=== PATIENT | male | born 1960 | race Caucasian/White ===

== ENCOUNTER → 2022-04-27 06:53 | Outpatient (CLI) | payer OTHER, SELFPAY ==
--- NOTE | 2022-04-27 | CA_ITS ---
APPROVED REPORT Exam: Exercise Treadmill Technologist: Kanwal Urbina Ht: 6 ft 0 in Wt: 193 lbs BSA: 2.10 m2 HR: 80 bpm BP: 149/89 mmHg Indications: Dyspnea Medical History Medications: BisOPROLOL,,,,, Stress Test Details Test: Nabeel HR Resting HR: 77 bpm Max Heart Rate (APMHR): 159 bpm Max HR Achieved: 136 bpm Target HR (85% APMHR): 135 bpm % of APMHR: 86 Recovery HR: 93 bpm BP Resting BP: 149.0/89.0 mmHg Max BP: 156.0/86.0 mmHg Recovery BP: 170.0/96.0 mmHg ECG Resting ECG: Normal sinus rhythm Clinical Reason for Termination: Dyspnea Exercise duration: 06:00 min Highest Stage Achieved: Exercise capacity: 7.0 METs Stress ECG Conclusion Abnormal stress test due to complaint of left shoulder pain. Patient exercised on a nabeel protocol for 6 minutes to peak heart rate of 136 bpm (target heart rate 135 bpm) without any arrhythmias. Less than 1.[address] segment depression noted infero-laterally that resolved quickly in recovery. He complained of left shoulder pain with radiation into chest that resolved in recovery. Total METS acheived 7.0 with peak blood pressure 159/102 mmHg. See the nuclear report for further information. Test Summary REST . . . . . . . Sitting REST . . . . . . . Standing REST 08:46 0.0 0.0 77 . 149/ 89 . . Stage 1 01:00 10.0 1.7 106 . . . . Stage 1 02:00 10.0 1.7 126 . . . . Stage 1 03:00 10.0 1.7 126 . 150/ 82 . . Stage 2 01:00 12.0 2.5 133 . . . . Stage 2 . . . . . . . Myoview Injected Stage 2 02:00 12.0 2.5 136 . . . . Stage 2 03:00 12.0 2.5 135 . . . Stop exercise at 06:00 RECOVERY 01:00 0.0 0.0 118 . . . . RECOVERY 02:00 0.0 0.0 98 . . . . RECOVERY 03:00 0.0 0.0 93 . . . . RECOVERY 04:00 0.0 0.0 85 . . . . RECOVERY 05:00 0.0 0.0 83 . 156/ 86 . . RECOVERY 05:30 0.0 0.0 82 . 156/ 86 . . Electronically signed by : Lauro Long MD 04/28/2022 06:31:35
--- NOTE | 2022-04-27 06:59 | NM_ITS ---
APPROVED REPORT Exam: Nuclear Stress Test Indication: Chest pain, SOB, Fatigue, HTN, Tobacco use Patient Location: Outpatient Stress Tech: Kanwal Urbina NE Tech:Shireen Oro, ARRT, RT (R)(N) Ht: 6 ft 0 in Wt: 193 lbs HR: 77 bpm BP: 149/89 mmHg BSA: 2.10 m2 TID: 1.21 History: Chest pain, SOB, Fatigue, HTN, Tobacco use Procedure: Patient exercised on Sumeet protocol 6:00 minutes and sec, resting heart rate 77 bpm, resting blood pressure 149/89 mmHg, with exercise maximum heart rate achived was 136 bpm which is 86 % of the maximum predicted heart rate and blood pressure was 156/86 mmHg. Test was stopped due to SOB and Lt shoulder pain. Patient denied any complaint of chest pain. Patient has Adequate exercise capacity, achieved 7.0 METs of workload on treadmill, the blood pressure response to exercise was Adequate. Electrocardiogram Resting electrocardiogram shows sinus rhythm, with exercise there is less than 1.[address] segment depression noted from the baseline EKG. The EKG portion of the exercise Myoview is negative for ischemia. Cardiac Stress and Resting SPECT Images: Cardiac Stress and Resting SPECT images were obtained using technetium 99m Myoview 27.9 mCi stress and 10.51 mCi at rest. Gated SPECT for analysis of segmental wall motion and calculation of the ejection fraction also done. Cardiac stress and rest SPECT may show a low-grade reversible ischemia involving the anterior r, anterior apical, apex and anteroseptal wall, there is transient ischemic dilatation of the left ventricle seen. Computer derived ejection fraction is 44% with mild anterior and anterior apical wall hypokinesis. Right ventricle is normal size and contractility. Conclusion: 1. The EKG portion of the exercise Myoview negative for ischemia, patient has adequate exercise capacity achieved 7 METS of workload on treadmill, the blood pressure response to exercise was adequate, patient developed exercise-induced symptoms compatible with angina. 2. Scintigraphic evidence of large reversible ischemia involving the anterior, anterior apical, apex and anteroseptal wall with transient ischemic dilatation of the left ventricle. Computer derived ejection fraction is 44% with segmental wall motion abnormality described above, right ventricle is normal size and contractility. 3. Abnormal exercise myocardial perfusion imaging. Electronically signed by : Lauro Long MD 04/28/2022 06:35:22
--- NOTE | 2022-04-27 09:24 | HMH.ITSHM ---
Current Home Medications as stated by this patient Heron Aly or medical representative. []BISOPROLOL
== END ==
PROVIDERS: PCP Internal Medicine Adolescent Medicine; Visit Provider Internal Medicine Adolescent Medicine
DX: R06.09 Other forms of dyspnea (principal)
CPT/HCPCS: 78452; 93017; A9502

== ENCOUNTER 2022-04-28 15:25 | Inpatient (IN) | payer OTHER, SELFPAY ==
[2022-04-28] VITALS (26 sets, daily range): BP systolic 117–151; BP diastolic 75–99; PULSE 69–100; RESP 12–23; TEMP -17.7–37.1; O2SAT 95–100; BMI 24.5; BMI 25.7; BMI 25.2
--- NOTE | 2022-04-28 15:31 | PC.NURSE ---
JASON ELY at
--- NOTE | 2022-04-28 15:31 | ECG_ITS ---
APPROVED REPORT Exam: Resting ECG HR:70 bpm ECG Measurements Heart Rate 70 AXES AL 150 P 70 QRSd 107 QRS -25 QT 400 T 37 QTc 421 Conclusion SINUS RHYTHM INCOMPLETE RIGHT BUNDLE BRANCH BLOCK [90+ ms QRS DURATION, TERMINAL R IN V1/V2, 40+ ms S IN I/aVL/V4/V5/V6] POSSIBLE INFERIOR MYOCARDIAL INFARCTION , PROBABLY OLD [30 ms Q WAVE IN II/aVF] MARKED ST ELEVATION, CONSIDER ANTEROSEPTAL INJURY [MARKED ST ELEVATION W/O NORMALLY INFLECTED T-WAVE IN V1-V4] ACUTE OR UNCONFIRMED REPORT Electronically signed by : Den Caceres MD 04/29/2022 21:35:00
--- NOTE | 2022-04-28 15:31 | PC.NURSE ---
STEMI alert announced overhead
--- NOTE | 2022-04-28 15:36 | HMH.PHAINT1 ---
Pharmacy Intervention Comments: MEDICATION RECONCILIATION COMPLETED ON PATIENT USING EXTERNAL FILL HISTORY FROM PHARMACY. -[facility] CHU, DIONYD
--- NOTE | 2022-04-28 15:39 | XR_ITS ---
FINAL REPORT CLINICAL HISTORY: stemi alert, patient going to heart electronic lab technician. FINDINGS: SINGLE-VIEW CHEST The heart size is normal. The mediastinum is normal. The lungs are clear. There is no pneumothorax. IMPRESSION: No acute cardiopulmonary process. Reviewed, Interpreted and Dictated by Gonzalo Sanchez III, MD Transcribed by Ana Pedroza Authenticated and [facility]
--- NOTE | 2022-04-28 15:46 | HMH.EDGENADL ---
Discharge Plan Disposition Patient Disposition: Admitted As Inpatient Condition: Serious Clinical Impressions Clinical Impression: ST elevation (STEMI) myocardial infarction Discharge ED Provider: Quinn Bobo General Adult HPI General Chief complaint: Chest Pain Stated complaint: LT shoulder pain Time Seen by Provider: 04/28/22 15:32 History of Present Illness HPI narrative: Patient planes of upper abdominal and left shoulder pain with diaphoresis. Onset 1 PM. He has been having episodes like this off and on for 2 to 3 weeks. He just had a stress test yesterday, patient is unaware of results. This is the longest and worst episode he has had. Current pain 6/10. No shortness of breath or nausea. He has no previous known heart problems. He does have hypertension and is a smoker. He does not have diabetes or hyperlipidemia. He does not have a family history of heart disease. Related Data Home Medications Medication Instructions Recorded Confirmed bisoprolol 5 1 tab PO DAILY Hypertension 04/28/22 04/28/22 mg-hydrochlorothiazide 6.25 mg tablet escitalopram oxalate 10 mg tablet 10 mg PO DAILY MOOD 04/28/22 04/28/22 Allergies Allergy/AdvReac Type Severity Reaction Status Date / Time No Known Allergies Allergy Verified 04/28/22 15:42 [facility] Disclaimer: The information contained in this section may have been updated after the patient was seen, as this information can be updated by other users. Medical History (Updated 04/28/22 @ 19:46 by Den Caceres MD) Hypertension Family History (Updated 04/28/22 @ 17:31 by Patricia Marie RN) Other Family history of cancer Family history of hypertension Social History (Updated 04/28/22 @ 17:32 by Patricia Marie RN) Smoking Status: Unknown if ever smoked alcohol intake: never current occupational status: employed Travel in the last 8 weeks: None ROS Obtained: Yes Systems reviewed as appropriate & no additional complaints except as documented Constitutional Constitutional: Denies fever(s), Denies headache(s) and Denies weakness ENT Ears, Nose, Mouth, and Throat: Denies headache(s), Denies nasal discharge and Denies sore throat Cardiovascular Cardiovascular: Denies chest pain, Reports diaphoresis and Reports radiating jaw, neck or arm pain Respiratory Respiratory: Denies shortness of breath and Denies cough Gastrointestinal Gastrointestingal: Denies abdominal pain, constipation, diarrhea, nausea or vomiting Genitourinary Male Genitourinary: Denies difficulty urinating and Denies flank pain Musculoskeletal Musculoskeletal: Denies numbness Neurologic Neurologic: Denies headache(s), Denies numbness and Denies weakness Physical Exam General General appearance: alert and in no apparent distress Head Head exam: atraumatic and normocephalic Eye Eye exam: Present normal appearance and EOMI ENT ENT exam: Present mucous membranes moist Neck Neck exam: Present normal inspection and trachea midline Chest Chest inspection: Present normal inspection and symmetric chest wall rise Respiratory Respiratory exam: Present normal lung sounds bilaterally; Absent respiratory distress Cardiovascular Cardiovascular exam: Present regular rate, normal rhythm, normal heart sounds and other (Normal peripheral pulses) Abdominal Exam Abdominal exam: Present soft and normal bowel sounds; Absent distention, tenderness, guarding, rebound or rigidity Extremities Exam Extremities exam: Present normal inspection Neurological Exam Neurological exam: Present alert and oriented X3 Psychiatric Psychiatric exam: Present normal affect and normal mood Skin Skin exam: Present warm and dry Medical Decision Making Medical Records Medical records reviewed: Yes I reviewed the patient's medical records. MR Comment: Reviewed stress test and myoview results from yesterday Justin Inquiry Pt receiving controlled substance: Yes Justin was queried for this patient: No
--- NOTE | 2022-04-28 15:57 | PC.NURSE ---
pt transported to chemical laboratory assistant via stretcher by Darren RN
[2022-04-28 15:58] LABS: Basophils # 0.3 K/mm3 (0-0.2); Basophils % 2.5 % (0.1-2.0); Chloride 102 mmol/L (98-107); Eosinophils # 0.1 K/mm3 (0.0-0.4); Hematocrit 48.3 % (42.0-52.0); Hemoglobin 16.1 g/dL (14.1-18.0); Lymphocytes # 2.9 K/mm3 (0.7-4.5); Lymphocytes % 25.4 % (10-50); Mean Corpuscular HGB Conc 33.3 g/dL (31.8-35.4); Mean Corpuscular Hemoglobin 32.9 pg (27.0-31.2); Mean Corpuscular Volume 98.9 fl (80-94); Mean Platelet Volume 8.2 fl (7.4-10.4); Monocytes # 0.7 K/mm3 (0.1-1.0); Neutrophils # 7.5 K/mm3 (1.8-7.8); Neutrophils % 65.1 % (37.0-80.0); Platelet Count 328 K/mm3 (142-424); Potassium 3.9 mmoL/L (3.5-5.1); Red Blood Count 4.89 M/mm3 (4.60-6.20); Red Cell Distribution Width 12.9 % (11.5-17.5); Sodium 140 mmol/L (136-145); White Blood Count 11.5 K/mm3 (4.8-10.8)
--- NOTE | 2022-04-28 15:58 | IR_ITS ---
APPROVED REPORT Patient Location: Emergent Shoe Cutter: GABO Moses RT (R) PROCEDURES Left heart catheterization Left ventriculogram Selective coronary angiogram Mechanical thrombectomy to the proximal LAD Drug-eluting stent deployment to the proximal LAD Informed consent was obtained prior to the procedure. COMPLICATIONS None Estimated Blood Loss: Less than 10 ML TECHNIQUE One percent lidocaine used to anesthetize the right anterior aspect of the wrist. The right radial artery was accessed via the Seldinger technique. A 6 Micronesian sheath was placed in the right radial artery. 2.5 mg of verapamil, 800 mcg of nitroglycerin, 1mg Lidocaine and 5000 U Heparin were given through the arterial sheath. The papa catheter was also used to perform selective coronary angiography. Guide catheter was placed in the left main artery followed by a Choice PT extra-support wire being placed on the LAD. A JobzippersumbOzVision mechanical aspiration catheter removed large thrombus which restored TIERENY-3 flow. A 4 mm x 15 mm resolute R[place]bury stent was deployed at 18 demetrio reducing the critical stenosis to 0%. A 5 mm x 8 mm balloon was deployed at 20 demetrio in the proximal portion of the stent to post dilate and better provide stent apposition. At the end of the procedure there was excellent proximal distal transitioning with TIERNEY 0 flow at the beginning of the procedure and TIERNEY-3 flow at the end of the procedure. The guide catheter was then used to perform right coronary artery angiography as well as left heart catheterization and left ventriculogram. At the end of the procedure the apparatus was removed the sheath was removed good hemostasis was achieved using TR banding patient was transferred to the postop putting in stable condition ANGIOGRAPHIC RESULTS The left main artery Normal The left anterior descending artery Initially proximally occluded. Following stenting the proximal LAD was widely patent with TIERNEY-3 flow throughout the entire LAD which wraps the apex and supplies the inferior wall The circumflex artery Large dominant normal The right coronary artery Nondominant normal The PAL ventriculogram reveals Anteroapical hypokinesis estimated ejection fraction 35 to 40% The left ventricular end-diastolic pressure 20 mmHg [address] Acute anterior ST elevation myocardial infarction involving a proximal wraparound apex LAD with successful mechanical aspiration followed by drug-eluting stenting reducing the 100% occlusion to 0% with 1 drug-eluting stent Large regional wall motion abnormality Elevated LVEDP PLAN 1. Brilinta 90 twice daily plus aspirin 81 mg daily 2. Avoidance of tobacco products 3. LDL less than 55 to be achieved with high intensity statin 4. Echocardiogram to better evaluate ejection fraction. If ejection fraction is 35% or less patient should be prescribed a LifeVest prior to discharge home 5. Advance Entresto first and once hemodynamically tolerated then beta-blockers can be advanced 6. Cardiac rehabilitation 7. Continuous telemetry monitoring for at least 48 hours Electronically signed by : Shawn Childs MD 04/28/2022 17:01:41
--- NOTE | 2022-04-28 15:58 | PC.NURSE ---
prashant from animal laboratory technician called and said they was ready for pt to come up
--- NOTE | 2022-04-28 15:59 | PC.NURSE ---
pt transported to slabbing machine operator per myself and tereso ritter on zoll monitor
[2022-04-28 16:01] LABS: Anion Gap 12.9 mEq/L (5-15); Blood Urea Nitrogen 22 mg/dl (9-20); Calcium 8.9 mg/dl (8.4-10.2); Carbon Dioxide 29 mmol/L (22.0-30.0); Creatinine Clearance Estimated 95 mL/min (50-200); Estimated Glomerular Filt Rate 76 ml/min (>60); GFR (African American) 92 ML/MIN (>60); Glucose 151 mg/dl (74-100)
--- NOTE | 2022-04-28 16:07 | PC.NURSE ---
JASON ELY speaking with Dr. Caceres at this time
[2022-04-28 16:11] LABS: NT Pro Brain Natriuretic Pep. 57.6 pg/mL (0-125)
[2022-04-28 16:15] LABS: Troponin I 0.01 ng/ml (0.00-0.034)
[2022-04-28 17:27] LABS: CATHL Activated Clotting Time 278 SEC (74-125)
[2022-04-28 19:43] LABS: Coronavirus 19, PCR Not Detected (NotDetected); Influenza A, PCR Not Detected (NotDetected); Influenza B, PCR Not Detected (NotDetected)
--- NOTE | 2022-04-28 19:43 | EXP.HP ---
History of Present Illness *Admission Date: 04/28/22 *Reason for visit:: Chest and abd pain *History of present illness: 62-year-old male with multiple cardiac risk factors who has seen me a couple of times in the past week with some exertional anginal symptoms. Stress test was done yesterday which was markedly abnormal, results had returned early this morning but patient began to develop pain throughout the morning and we advised him to come to the emergency department early this afternoon. He presented to the ER with chest pain, evidence of STEMI on EKG he was taken to the Public Health Program Manager. Please see cardiology notes. Clot removed from LAD/stent placed. Patient stabilized. Transferred to floor in good condition. [facility] Disclaimer: The information contained in this section may have been updated after the patient was seen, as this information can be updated by other users. Medical History (Updated 04/28/22 @ 19:46 by Den Caceres MD) Hypertension Family History (Updated 04/28/22 @ 17:31 by Patricia aMrie RN) Family history of cancer Family history of hypertension Social History (Updated 04/28/22 @ 17:32 by Patricia Marie RN) Smoking Status: Unknown if ever smoked alcohol intake: never current occupational status: employed Travel in the last 8 weeks: None Review of Systems Constitutional Constitutional: Denies headache(s) and Denies weakness ENT Ears, Nose, Mouth, and Throat: Denies headache(s) *Musculoskeletal Musculoskeletal: Denies numbness *Neurologic Neurologic: Denies headache(s), Denies numbness and Denies weakness Meds Home Medications and Allergies Home Medications Medication Instructions Recorded Confirmed Type bisoprolol 5 1 tab PO DAILY Hypertension 04/28/22 04/28/22 History mg-hydrochlorothiazide 6.25 mg tablet escitalopram oxalate 10 mg tablet 10 mg PO DAILY MOOD 04/28/22 04/28/22 History New Prescriptions to Start Prescriptions: Allergies Allergy/AdvReac Type Severity Reaction Status Date / Time No Known Allergies Allergy Verified 04/28/22 15:42 Exam Data for Last 24 hours Vital signs and Labs for Last 24 Hours: Temp Pulse Resp BP Pulse Ox 98 F 84 18 126/83 98 04/28/22 17:56 04/28/22 18:40 04/28/22 18:40 04/28/22 18:40 04/28/22 18:40 Laboratory Results - last 24 hr 04/28/22 15:37: WBC 11.5 H, RBC 4.89, Hgb 16.1, Hct 48.3, MCV 98.9 H, MCH 32.9 H, MCHC 33.3, RDW 12.9, Plt Count 328, MPV 8.2, Neut % (Auto) 65.1, Lymph % (Auto) 25.4, [place] % (Auto) 6.0, Eos % (Auto) 1.0, Baso % (Auto) 2.5 H, Neut # (Auto) 7.5, Lymph # (Auto) 2.9, [place] # (Auto) 0.7, Eos # (Auto) 0.1, Baso # (Auto) 0.3 H 04/28/22 15:37: Sodium 140, Potassium 3.9, Chloride 102, Carbon Dioxide 29, Anion Gap 12.9, BUN 22 H, Creatinine 1.00, Estimated Creat Clear 95, Estimated GFR 76, Est GFR ( Amer) 92, Glucose 151 H, Calcium 8.9, Troponin I 0.01 04/28/22 15:37: NT-Pro-B Natriuret Pep 57.6 04/28/22 17:33: Activated Clotting Time 278 H* I & O for Last 24 hours: Intake & Output 04/26/22 04/27/22 04/28/22 04/29/22 11:59 11:59 11:59 11:59 Weight 186 lb 6 oz Constitutional Constitutional: no acute distress *Routine HEENT Exam Head: Present normocephalic Eye: Present EOMI and PERRL ENT: Present mucous membranes moist *Routine Neck Exam Neck: Present supple; Absent lymphadenopathy *Routine Respiratory Exam Respiratory: Present CTA bilaterally *Routine Cardiovascular Exam Cardiovascular: Present RRR *Routine Abdominal Exam Abdominal: Present soft and normoactive bowel sounds; Absent tenderness *Routine Rectal Exam Rectal:: deferred *Routine Genitalia Exam Genitalia:: deferred *Routine Extremities Exam Extremities: Absent cyanosis, clubbing or edema *Routine Skin Exam Skin: Present warm; Absent rash *Routine Neurological Exam Neurological: Present alert and oriented X3 Assessment and Plan *Assessment and plan (1) ST elevation (STEMI) myocardial infarctio
[2022-04-29] VITALS (12 sets, daily range): BP systolic 113–139; BP diastolic 63–91; PULSE 69–92; RESP 16–20; TEMP 36.7–37.1; O2SAT 96–99; BMI 24.9
--- NOTE | 2022-04-29 03:33 | PC.NURSE ---
Pt has c/o CP tonight with a rating between 2-5. Has also had some indigestion. Medicated per may. VS have remained stable. Pt is NSR on telemetry. (R) radial cath site is C/D/I. No drainage noted. Has ambulated to with stand by assist. Call light within reach.
[2022-04-29 06:26] LABS: Basophils # 0.1 K/mm3 (0-0.2); Basophils % 0.4 % (0.1-2.0); Eosinophils % 0.2 % (0.1-12.0); Hematocrit 44.3 % (42.0-52.0); Hemoglobin 15.6 g/dL (14.1-18.0); Lymphocytes # 2.4 K/mm3 (0.7-4.5); Lymphocytes % 12.6 % (10-50); Mean Corpuscular HGB Conc 35.2 g/dL (31.8-35.4); Mean Corpuscular Hemoglobin 34.9 pg (27.0-31.2); Mean Corpuscular Volume 99.3 fl (80-94); Monocytes # 1.2 K/mm3 (0.1-1.0); Monocytes % 6.5 % (1.7-9.3); Neutrophils # 15.5 K/mm3 (1.8-7.8); Neutrophils % 80.4 % (37.0-80.0); Platelet Count 276 K/mm3 (142-424); Red Blood Count 4.46 M/mm3 (4.60-6.20); Red Cell Distribution Width 13.2 % (11.5-17.5); White Blood Count 19.2 K/mm3 (4.8-10.8)
[2022-04-29 06:38] LABS: MANUAL DIFFERENTIAL MANUAL DIFFERENTIAL (MANUAL DIFF)
[2022-04-29 06:43] LABS: Chloride 104 mmol/L (98-107); Potassium 4.1 mmoL/L (3.5-5.1); Sodium 137 mmol/L (136-145)
[2022-04-29 06:46] LABS: Anion Gap 10.1 mEq/L (5-15); Blood Urea Nitrogen 20 mg/dl (9-20); Calcium 8.8 mg/dl (8.4-10.2); Carbon Dioxide 27 mmol/L (22.0-30.0); Creatinine Clearance Estimated 92 mL/min (50-200); Estimated Glomerular Filt Rate 98 ml/min (>60); GFR (African American) 119 ML/MIN (>60); Glucose 117 mg/dl (74-100)
[2022-04-29 07:46] LABS: Lymphocytes % 20 % (10-50); Monocytes % 6 % (2-9); Neutrophils % 74 % (42-76); Platelet Estimate Normal; RBC Morphology Normal; Total Cells Counted 100
--- NOTE | 2022-04-29 07:50 | CA_ITS ---
APPROVED REPORT EXAM: Comprehensive 2D, Doppler, and color-flow Echocardiogram Media Traffic Manager: Valerie Durant RT(R) Ht: 5 ft 8 in Wt: 183lbs BSA: 1.97 BP: 126/83 mmHg Indications: HTN, CM on cath 35-40% EF, STEMI 2D Dimensions LVOT 1.87 cm (M/F) 1.5-2.5 LVEF (Altamirano's) 31.20 % M: 52 - 72 LV Volume 98.10 mL M: 62 - 150 LV Volume Index 49.80 mL/m2 M: 34 - 74 LA Volume 39.30 mL LA Volume Index 19.95 mL/m2 (M/F) 16-34 M-Mode Dimensions RVDd 2.33 cm (0.9-2.6) LA Diam 2.51 cm (1.9-4.0) LVDd 5.44 cm (3.5-5.7) Ao Diam 2.58 cm (2.0-3.7) LVDs 4.08 cm (3.5-5.7) IVSd 0.79 cm (0.6-1.1) PWd 0.89 cm (0.6-1.1) EF (Teich) 48.90% FS 25.00% EDV (Teich) 143.70 mL ESV (Teich) 73.40 mL LV Diastology E Decel Time 220.00 (160-240 msec) E/A Ratio 0.6 MED E' 5.90 (< 7 cm/sec) E'/MED E' Ratio 10.68 (>14) LAT E' 6.80 (<10 cm/sec) E/LAT E' Ratio 9.26 (>14) Mitral Valve MV E Max Parvez. 63.00 (40-130 cm/s) MV A Velocity 98.00 (40-130 cm/s) E/A Ratio 0.64 MV Decel. Time 220.00 (160-240 ms) MV PHT 64.00 ms Left Ventricle Left atrium is mildly enlarged, left ventricle is normal size, mild concentric left ventricular hypertrophy estimated ejection fraction approximately 45%, there is moderate hypokinesis involving the left distal septum and apical wall. Grade 1 diastolic dysfunction seen without evidence of intraventricular pressure. Right Ventricle Right atrium and right ventricular normal size and contractility. Aortic Valve Aortic valve is thickened and calcified without aortic stenosis or aortic insufficiency. Mitral Valve Mitral valve is grossly normal, there is trace mitral regurgitation. Tricuspid Valve Tricuspid grossly normal, there is trace tricuspid regurgitation, tricuspid regurgitation jet velocity is inadequate for calculation of right ventricular systolic pressure. Pulmonic Valve Pulmonic valve is poorly visualized. Great Vessels Aortic root is normal size. Inferior vena cava is poorly visualized. Pericardium No significant pericardial effusion noted. Conclusion 1. Mildly enlarged left atrium, normal left ventricular size, mild concentric left ventricular hypertrophy estimated ejection fraction 45% with segmental wall motion abnormality described above, grade 1 diastolic dysfunction seen without tissue Doppler evidence of raised left atrial pressure 2. Trace mitral and tricuspid regurgitation. 3. No significant pericardial effusion noted. 4. Inferior vena cava is poorly visualized. Electronically signed by : Lauro Long MD 04/29/2022 21:14:23
--- NOTE | 2022-04-29 07:50 | ECG_ITS ---
APPROVED REPORT Exam: Resting ECG HR:89 bpm ECG Measurements Heart Rate 89 AXES FL 146 P 54 QRSd 109 QRS 17 QT 359 T 89 QTc 406 Conclusion SINUS RHYTHM INDETERMINATE AXIS LOW QRS VOLTAGE IN PRECORDIAL LEADS [QRS DEFLECTION < 1.0 mV IN CHEST LEADS] INCOMPLETE RIGHT BUNDLE BRANCH BLOCK [90+ ms QRS DURATION, TERMINAL R IN V1/V2, 40+ ms S IN I/aVL/V4/V5/V6] POSSIBLE INFERIOR MYOCARDIAL INFARCTION , PROBABLY OLD [30 ms Q WAVE IN II/aVF] ANTEROSEPTAL MYOCARDIAL INFARCTION , PROBABLY RECENT [40+ ms Q WAVE IN V1-V4] ACUTE HI UNCONFIRMED REPORT Electronically signed by : Den Caceres MD 04/29/2022 21:33:59
--- NOTE | 2022-04-29 08:00 | EXP.CARD.CON ---
History of Present Illness History of Present Illness Consult date: 04/29/22 Requesting physician: Den Caceres Consult reason: chest pain Chief complaint: STEMI Additional Medical History:: 1. Hypertension 2. History of tobacco use 3. Anterior STEMI, 04/28/2022 A. LHC, 04/28/2022 with IVAN to LAD 4. Ischemic cardiomyopathy, 04/27/2022, GXT myoview (exercised for 6 min to 7 METS) A. EF 44% and anterior, anterior apical, apex and anteroseptal ischemia. TID of 1.21 noted. B. Echo, 04/29/2022, pending 5. Hyperlipidemia History of present illness: 62-year-old white male presented to the emergency department for anterior chest discomfort with associated indigestion type symptoms that were persistent. Patient relates 2-week history of intermittent symptoms only with exertion. He did undergo a stress test on 04/27/2022 with results coming back on 04/28/2022 showing anterior ischemia. Patient presented to the emergency department prior to getting those results due to prolonged chest pain. He was noted to have a anterior STEMI on EKG and he was sent urgently to the [facility] where he did receive thrombectomy and stent placement to his LAD. This a.m. the patient is comfortable and in no acute distress. Telemetry shows NSR without arrhythmias. EKG this AM is sinus with incomplete RBBB and evolutionary changes of anterior [place]. [facility] Disclaimer: The information contained in this section may have been updated after the patient was seen, as this information can be updated by other users. Medical History (Updated 04/29/22 @ 08:24 by SUE Monson) Hypertension Family History (Updated 04/28/22 @ 17:31 by Patricia Marie RN) Family history of cancer Family history of hypertension Social History (Updated 04/28/22 @ 17:32 by Patricia Marie RN) Smoking Status: Unknown if ever smoked alcohol intake: never current occupational status: employed Travel in the last 8 weeks: None Review of Systems Review of Systems Review of systems:: pertinent systems reviewed and negative unless documented below Constitutional Constitutional: Denies headache(s) and Denies weakness ENT Ears, Nose, Mouth, and Throat: Denies headache(s) *Cardiovascular Cardiovascular: Reports as per HPI, Reports chest pain and Reports dyspnea on exertion *Respiratory Respiratory: Reports dyspnea on exertion *Gastrointestinal Gastrointestinal: Reports heartburn and Denies loose stools *Musculoskeletal Musculoskeletal: Denies numbness *Neurologic Neurologic: Denies headache(s), Denies numbness and Denies weakness Exam Data for Last 24 hours Vital signs and Labs for Last 24 Hours: Temp Pulse Resp BP Pulse Ox 98.6 F 71 18 118/74 98 04/29/22 04:00 04/29/22 06:00 04/29/22 06:00 04/29/22 06:00 04/29/22 06:00 Laboratory Results - last 24 hr 04/28/22 15:37: WBC 11.5 H, RBC 4.89, Hgb 16.1, Hct 48.3, MCV 98.9 H, MCH 32.9 H, MCHC 33.3, RDW 12.9, Plt Count 328, MPV 8.2, Neut % (Auto) 65.1, Lymph % (Auto) 25.4, [place] % (Auto) 6.0, Eos % (Auto) 1.0, Baso % (Auto) 2.5 H, Neut # (Auto) 7.5, Lymph # (Auto) 2.9, [place] # (Auto) 0.7, Eos # (Auto) 0.1, Baso # (Auto) 0.3 H 04/28/22 15:37: Sodium 140, Potassium 3.9, Chloride 102, Carbon Dioxide 29, Anion Gap 12.9, BUN 22 H, Creatinine 1.00, Estimated Creat Clear 95, Estimated GFR 76, Est GFR ( Amer) 92, Glucose 151 H, Calcium 8.9, Troponin I 0.01 04/28/22 15:37: NT-Pro-B Natriuret Pep 57.6 04/28/22 17:33: Activated Clotting Time 278 H* 04/28/22 19:40: SARS-CoV-2 (PCR) Not detected, Influenza A Untype (PCR) Not detected, Influenza Type B (PCR) Not detected 04/29/22 05:38: WBC 19.2 H D, RBC 4.46 L, Hgb 15.6, Hct 44.3, MCV 99.3 H, MCH 34.9 H, MCHC 35.2, RDW 13.2, Plt Count 276, MPV 8.0, Neut % (Auto) 80.4 H, Lymph % (Auto) 12.6, [place] % (Auto) 6.5, Eos % (Auto) 0.2, Baso % (Auto) 0.4, Neut # (Auto) 15.5 H, Lymph # (Auto) 2.4, [place] # (Auto) 1.2 H, Eos # (Auto) 0.0, Baso # (Auto) 0.1, Total Counted 100, Neutrophils %
--- NOTE | 2022-04-29 08:13 | EXP.ACUTE.PN ---
Subjective *Date: 04/29/22 *Time: 08:13 Interval history: Patient did well overnight. Some anterior chest pain but improved through the night with Tylenol and 1 morphine injection. No dyspnea. No abdominal pain. Ate well. No vomiting Medical Exam Vital signs and Labs for Last 24 Hours: Vital Signs Temp Pulse Pulse Resp BP BP Pulse Ox 04/29/22 06:00 71 18 118/74 98 04/29/22 04:00 69 16 113/74 98 04/29/22 04:00 98.6 F 04/29/22 02:00 71 18 123/91 H 96 04/29/22 04:00 70 04/29/22 00:00 70 04/28/22 20:00 100 H 04/29/22 00:10 73 18 124/80 97 04/29/22 00:00 98.3 F 04/28/22 23:10 98.7 F 69 15 124/75 98 04/28/22 21:10 70 17 118/75 95 04/28/22 20:10 77 15 143/86 H 96 04/28/22 19:40 78 16 117/75 96 04/28/22 19:10 70 16 123/76 95 04/28/22 19:46 98.7 F 04/28/22 18:40 84 18 126/83 98 04/28/22 18:10 75 16 132/78 98 04/28/22 17:55 79 18 128/85 99 04/28/22 17:40 70 20 128/83 100 04/28/22 17:25 80 18 148/92 H 100 04/28/22 17:56 98 F 04/28/22 15:59 0 F L 72 16 125/80 04/28/22 17:24 73 04/28/22 17:20 74 04/28/22 15:30 80 18 151/99 H 96 04/28/22 17:05 74 13 136/86 98 04/28/22 17:00 74 12 140/83 98 04/28/22 16:55 72 18 137/97 H 99 04/28/22 16:50 72 18 141/91 H 100 04/28/22 15:57 73 19 125/80 98 04/28/22 15:55 70 15 130/83 98 04/28/22 15:52 17 134/93 H 99 04/28/22 15:50 77 18 137/84 99 04/28/22 15:47 76 23 137/84 99 Intake and Output 04/28/22 04/29/22 04/29/22 19:59 03:59 11:59 Output Total 0 / 0 Balance 0 / 0 Output: Output, Urine Amount 0 / 0 Other: Number of Unmeasured Voids 1 1 Weight 186 lb 6 oz 184 lb Patient Weight 04/29/22 11:59 Weight 184 lb Laboratory Results - last 24 hr 04/28/22 15:37: WBC 11.5 H, RBC 4.89, Hgb 16.1, Hct 48.3, MCV 98.9 H, MCH 32.9 H, MCHC 33.3, RDW 12.9, Plt Count 328, MPV 8.2, Neut % (Auto) 65.1, Lymph % (Auto) 25.4, [place] % (Auto) 6.0, Eos % (Auto) 1.0, Baso % (Auto) 2.5 H, Neut # (Auto) 7.5, Lymph # (Auto) 2.9, [place] # (Auto) 0.7, Eos # (Auto) 0.1, Baso # (Auto) 0.3 H 04/28/22 15:37: Sodium 140, Potassium 3.9, Chloride 102, Carbon Dioxide 29, Anion Gap 12.9, BUN 22 H, Creatinine 1.00, Estimated Creat Clear 95, Estimated GFR 76, Est GFR ( Amer) 92, Glucose 151 H, Calcium 8.9, Troponin I 0.01 04/28/22 15:37: NT-Pro-B Natriuret Pep 57.6 04/28/22 17:33: Activated Clotting Time 278 H* 04/28/22 19:40: SARS-CoV-2 (PCR) Not detected, Influenza A Untype (PCR) Not detected, Influenza Type B (PCR) Not detected 04/29/22 05:38: WBC 19.2 H D, RBC 4.46 L, Hgb 15.6, Hct 44.3, MCV 99.3 H, MCH 34.9 H, MCHC 35.2, RDW 13.2, Plt Count 276, MPV 8.0, Neut % (Auto) 80.4 H, Lymph % (Auto) 12.6, [place] % (Auto) 6.5, Eos % (Auto) 0.2, Baso % (Auto) 0.4, Neut # (Auto) 15.5 H, Lymph # (Auto) 2.4, [place] # (Auto) 1.2 H, Eos # (Auto) 0.0, Baso # (Auto) 0.1, Total Counted 100, Neutrophils % (Manual) 74, Lymphocytes % (Manual) 20, Monocytes % (Manual) 6, Platelet Estimate Normal, RBC Morphology Normal 04/29/22 05:38: Sodium 137, Potassium 4.1, Chloride 104, Carbon Dioxide 27, Anion Gap 10.1, BUN 20, Creatinine 0.80, Estimated Creat Clear 92, Estimated GFR 98, Est GFR ( Amer) 119 D, Glucose 117 H D, Calcium 8.8 I & O for Labs for Last 24 Hours: Intake & Output 04/26/22 04/27/22 04/28/22 04/29/22 11:59 11:59 11:59 11:59 Output Total 0 / 0 Balance 0 / 0 Weight 184 lb Constitutional: Present no acute distress Respiratory: Present normal respiratory effort Cardiac: Present Reg Rate and Rhythm GI: Present normal bowel sounds; Absent tenderness Extremities: Present normal inspection and full ROM Skin: Present intact; Absent erythema Neuro: Present Grossly Intact and moves all extremities Assessment and Plan *Assessment and pl
[2022-04-29 08:40] LABS: Chol/HDL Ratio 5.2 (1-3.5); Cholesterol 186 mg/dl (140-200); HDL Cholesterol 36 mg/dl (40-60); Triglycerides 93 mg/dl (30-150); VLDL Cholesterol 19 mg/dL (0-40)
[2022-04-29 08:51] LABS: Direct LDL Cholesterol 133.86 mg/dL (100-129)
--- NOTE | 2022-04-29 09:18 | PC.NURSE ---
notified Dr Caceres at this time about pt needing order for VTE.
[2022-04-30] VITALS: PULSE 76
--- NOTE | 2022-04-30 02:49 | PC.NURSE ---
NO C/O PAIN/SOA/DISCOMFORT. A/O X 4. CARDIAC CATH/ANGIOPLASTY 04/28/22. SR ON TELE. VSS/AFEBRILE.
[2022-04-30 04:00] VITALS: BP 116/75; PULSE 72; PULSE 81; RESP 18; TEMP 36.7; O2SAT 96; BMI 24.6
[2022-04-30 06:39] LABS: Basophils # 0.1 K/mm3 (0-0.2); Basophils % 0.6 % (0.1-2.0); Eosinophils # 0.1 K/mm3 (0.0-0.4); Eosinophils % 0.4 % (0.1-12.0); Hematocrit 48.3 % (42.0-52.0); Hemoglobin 15.7 g/dL (14.1-18.0); Lymphocytes # 2.2 K/mm3 (0.7-4.5); Lymphocytes % 18.5 % (10-50); Mean Corpuscular HGB Conc 32.5 g/dL (31.8-35.4); Mean Corpuscular Hemoglobin 33.2 pg (27.0-31.2); Mean Corpuscular Volume 102.3 fl (80-94); Monocytes # 1.1 K/mm3 (0.1-1.0); Monocytes % 9.1 % (1.7-9.3); Neutrophils # 8.6 K/mm3 (1.8-7.8); Neutrophils % 71.4 % (37.0-80.0); Platelet Count 287 K/mm3 (142-424); Red Blood Count 4.72 M/mm3 (4.60-6.20); White Blood Count 12.1 K/mm3 (4.8-10.8)
[2022-04-30 06:46] LABS: Chloride 107 mmol/L (98-107); Sodium 138 mmol/L (136-145)
[2022-04-30 06:49] LABS: Blood Urea Nitrogen 21 mg/dl (9-20); Creatinine Clearance Estimated 91 mL/min (50-200); Estimated Glomerular Filt Rate 86 ml/min (>60); GFR (African American) 104 ML/MIN (>60)
[2022-04-30 06:50] LABS: Calcium 8.5 mg/dl (8.4-10.2); Carbon Dioxide 30 mmol/L (22.0-30.0); Glucose 100 mg/dl (74-100)
[2022-04-30 07:34] VITALS: BP 108/65; PULSE 82; RESP 22; TEMP 36.7; O2SAT 99
[2022-04-30 08:00] VITALS: PULSE 82; O2SAT 99
--- NOTE | 2022-04-30 08:09 | EXP.DC.SUM ---
General Admission date:: 04/28/22 Discharge date: 04/30/22 HPI HPI HPI: 62-year-old male with multiple cardiac risk factors who has seen me a couple of times in the past week with some exertional anginal symptoms. Stress test was done yesterday which was markedly abnormal, results had returned early this morning but patient began to develop pain throughout the morning and we advised him to come to the emergency department early this afternoon. He presented to the ER with chest pain, evidence of STEMI on EKG he was taken to the [facility]. Please see cardiology notes. Clot removed from LAD/stent placed. Patient stabilized. Transferred to floor in good condition. Hospital Course Hospital Course Hospital Course: Patient was taken to the ER as a STEMI alert. Cardiac procedure done with clot removal, stent placement. Initial EF in the procedure was low, patient was observed carefully for the next 48 hours and did well with no further chest pain after 8 or so hours of some reperfusion pain. Vital signs remained normal and stable. Echocardiogram following day was noted with EF improving at 45%. Patient exhibited no signs of heart failure. This morning he feels well. Plan to be to discharge home on goal-directed therapy with DAPT, statin, Entresto, and low-dose beta-lester as well as Jardiance 10 mg given high risk of recurrence. He is done well with nicotine patch and we will continue this. Follow-up with cardiology in 6 days. I will see him in 1 week. Exam Data for Last 24 hours Vital signs and Labs for Last 24 Hours: Temp Pulse Resp BP Pulse Ox 98.1 F 82 22 108/65 L 99 04/30/22 07:34 04/30/22 07:34 04/30/22 07:34 04/30/22 07:34 04/30/22 07:34 Laboratory Results - last 24 hr 04/29/22 05:38: Triglycerides 93, Cholesterol 186, LDL Cholesterol Direct 133.86 H, VLDL Cholesterol 19, HDL Cholesterol 36 L, Cholesterol/HDL Ratio 5.2 H 04/30/22 05:52: WBC 12.1 H D, RBC 4.72, Hgb 15.7, Hct 48.3, MCV 102.3 H, MCH 33.2 H, MCHC 32.5, RDW 13.0, Plt Count 287, MPV 8.0, Neut % (Auto) 71.4, Lymph % (Auto) 18.5, [place] % (Auto) 9.1, Eos % (Auto) 0.4, Baso % (Auto) 0.6, Neut # (Auto) 8.6 H, Lymph # (Auto) 2.2, [place] # (Auto) 1.1 H, Eos # (Auto) 0.1, Baso # (Auto) 0.1 04/30/22 05:52: Sodium 138, Potassium 4.0, Chloride 107, Carbon Dioxide 30, Anion Gap 5.0, BUN 21 H, Creatinine 0.90, Estimated Creat Clear 91, Estimated GFR 86, Est GFR ( Amer) 104, Glucose 100, Calcium 8.5 I & O for Last 24 hours: Intake & Output 04/27/22 04/28/22 04/29/22 04/30/22 11:59 11:59 11:59 11:59 Intake Total 240 / 240 1440 / 1440 Output Total 350 / 350 Balance -110 / -110 1440 / 1440 Weight 183 lb 15.965 oz 182 lb 1 oz Constitutional Constitutional: no acute distress *Routine HEENT Exam Head: Present normocephalic Eye: Present EOMI and PERRL ENT: Present mucous membranes moist *Routine Neck Exam Neck: Present supple; Absent lymphadenopathy *Routine Respiratory Exam Respiratory: Present CTA bilaterally *Routine Cardiovascular Exam Cardiovascular: Present RRR *Routine Abdominal Exam Abdominal: Present soft and normoactive bowel sounds; Absent tenderness *Routine Extremities Exam Extremities: Absent cyanosis, clubbing or edema *Routine Skin Exam Skin: Present warm; Absent rash *Routine Neurological Exam Neurological: Present alert and oriented X3 Results Data Completed and Pending Labs on day of discharge: Labs from last 24 hours 04/30/22 04/30/22 04/29/22 05:52 05:52 05:38 WBC 12.1 H D RBC 4.72 Hgb 15.7 Hct 48.3 MCV 102.3 H MCH 33.2 H MCHC 32.5 RDW 13.0 Plt Count 287 MPV 8.0 Neut % (Auto) 71.4 Lymph % (Auto) 18.5 [place] % (Auto) 9.1 Eos % (Auto) 0.4 Baso % (Auto) 0.6 Neut # (Auto) 8.6 H Lymph # (Auto) 2.2 [place] # (Auto) 1.1 H Eos # (Auto) 0.1 Baso # (Auto) 0.1 Sodium 138 Potassium 4.0 Chloride 107 Carbon Dioxide 30 Anion Gap 5
--- NOTE | 2022-04-30 08:30 | EXP.CARD.PN ---
Subjective Subjective Date: 04/30/22 Time: 08:30 Principal diagnosis: STEMI Interval history: 62-year-old white male sitting in bedside chair no acute distress. No complaints. No arrhythmias noted on telemetry. Patient is anxious to go home. Echocardiogram showed EF at 45% with moderate hypokinesia involving the left distal septum and apical bryant. Grade 1 diastolic dysfunction noted. No significant valve disease.. Exam Data for Last 24 hours Vital signs and Labs for Last 24 Hours: Temp Pulse Resp BP Pulse Ox 98.1 F 82 22 108/65 L 99 04/30/22 07:34 04/30/22 07:34 04/30/22 07:34 04/30/22 07:34 04/30/22 07:34 Laboratory Results - last 24 hr 04/29/22 05:38: Triglycerides 93, Cholesterol 186, LDL Cholesterol Direct 133.86 H, VLDL Cholesterol 19, HDL Cholesterol 36 L, Cholesterol/HDL Ratio 5.2 H 04/30/22 05:52: WBC 12.1 H D, RBC 4.72, Hgb 15.7, Hct 48.3, MCV 102.3 H, MCH 33.2 H, MCHC 32.5, RDW 13.0, Plt Count 287, MPV 8.0, Neut % (Auto) 71.4, Lymph % (Auto) 18.5, [place] % (Auto) 9.1, Eos % (Auto) 0.4, Baso % (Auto) 0.6, Neut # (Auto) 8.6 H, Lymph # (Auto) 2.2, [place] # (Auto) 1.1 H, Eos # (Auto) 0.1, Baso # (Auto) 0.1 04/30/22 05:52: Sodium 138, Potassium 4.0, Chloride 107, Carbon Dioxide 30, Anion Gap 5.0, BUN 21 H, Creatinine 0.90, Estimated Creat Clear 91, Estimated GFR 86, Est GFR ( Amer) 104, Glucose 100, Calcium 8.5 I & O for Last 24 hours: Intake & Output 04/27/22 04/28/22 04/29/22 04/30/22 11:59 11:59 11:59 11:59 Intake Total 240 / 240 1440 / 1440 Output Total 350 / 350 Balance -110 / -110 1440 / 1440 Weight 183 lb 15.965 oz 182 lb 1 oz Constitutional Constitutional: no acute distress *Routine Respiratory Exam Respiratory: Present CTA bilaterally *Routine Cardiovascular Exam Cardiovascular: Present RRR *Routine Extremities Exam Extremities: Absent edema Progress Note: A&P Assessment and plan (1) ST elevation (STEMI) myocardial infarction: Status: Acute (2) Coronary atherosclerosis: Status: Acute (3) Ischemic cardiomyopathy: Status: Acute (4) Personal history of nicotine dependence: Status: Acute (5) Hyperlipidemia: Status: Acute (6) History of hypertension: Status: Acute Assessment and Plan Assessment and Plan for All Diagnoses:: 1.? Anterior STEMI, status post mechanical thrombectomy with IVAN placement to the LAD.? He is on aspirin and Brilinta.? 2.? Ischemic cardiomyopathy with EF 45%. Patient is on bisoprolol and Entresto 3. Nicotine dependence, cessation recommended.? Nicotine patch in place 4.? History of hypertension, currently controlled 5.? Hyperlipidemia, statin therapy instituted.? Check lipid panel. 6.? Elevated WBC, likely due to STEMI since CXR negative. 7.? Macrocytosis without anemia. Clinically stable from cardiac standpoint for discharge home. Follow-up in our office in 1 week. Home medication recommendations: Aspirin 81 mg daily Brilinta 90 mg twice daily Atorvastatin 40 mg daily Bisoprolol 2.5 mg daily Entresto 24/26 twice daily.
--- NOTE | 2022-04-30 09:01 | HMH.PHACL ---
PHA Coiled Tubing Supervisor Discharge Med Die Maker Bench Stamping: Heron Aly has received discharge medication counseling on the following medications: -ASPIRIN (ANTIPLATELET, DAILY, BLEED/BRUISE RISK, BLEED LOCATION AND APPEARANCE, BUMP HEAD = GO TO ER) -ATORVASTATIN (CHOLESTEROL, TAKE AT BEDTIME, WATCH FOR MUSCLE PAIN/WEAKNESS) -BISOPROLOL (FOR BP, BEEN ON BEFORE, NO QUESTIONS) -BRILINTA (ANTIPLATELET, TWICE DAILY, SHORTNESS OF BREATH POSSIBLE, BLEED/BRUISE RISK, BLEED LOCATION CHANGES APPEARANCE, BUMP HEAD = GO TO THE ER TO RULE OUT HEAD BLEED) -ENTRESTO (FOR BP, TWICE DAILY, DIZZINESS, LIGHTHEADEDNESS, HEADACHE, LOW BP POSSIBLE) -JARDIANCE (FOR CARDIOLOGY OUTCOMES, DAILY, TAKE WITH FOOD, LOW BLOOD SUGAR POSSIBLE, GENITAL YEAST INFECTIONS POSSIBLE) -NICOTINE PATCH (DAILY, REMOVE OLD PATCH FIRST, ROTATE APPLICATION SITES DAILY, REMOVE PRIOR TO IMAGING, REDNESS/IRRITATION AT APPLICATION SITE POSSIBLE) -STOP BISOPROLOL/HCTZ PATIENT VERBALIZED NO QUESTIONS AT THIS TIME.
--- NOTE | 2022-05-01 13:54 | CARE MANAGER ---
Spoke with patient for post-discharge phone interview, no issues noted.
== END 2022-04-30 09:45 | disposition home or self-care (01) | DRG 247 ==
LOC: ER 16:13 → CATHLAB 16:44 → 2ND 17:05
PROVIDERS: Physician Assistant; Admitting Provider Internal Medicine Adolescent Medicine; Emergency Provider Emergency Medicine; PCP Internal Medicine Adolescent Medicine; Referring Provider Internal Medicine; Visit Provider Internal Medicine Adolescent Medicine
PROC: 027034Z Dilation of Coronary Artery, One Artery with Drug-eluting Intraluminal Device, Percutaneous Approach (ICD-10-PCS; principal; 2022-04-28 16:00)
DX: I21.09 ST elevation (STEMI) myocardial infarction involving other coronary artery of anterior wall (principal); I25.10 Atherosclerotic heart disease of native coronary artery without angina pectoris; I25.5 Ischemic cardiomyopathy; E78.5 Hyperlipidemia, unspecified; Z71.6 Tobacco abuse counseling; F17.200 Nicotine dependence, unspecified, uncomplicated
CPT/HCPCS: 36415; 71045; 78452; 80048; 80061; 83880; 84484; 85007; 85025; 85347; 92941; 93005; 93017; 93306; 93458; 99152; 99153; 99291; A9502; C1725; C1769; C1876; C9606; C9803; J1644; Q9967; U0003; U0005

== ENCOUNTER → 2022-05-06 07:59 | Outpatient (CLI) | payer OTHER, SELFPAY ==
[2022-05-06 11:07] LABS: Hematocrit 49.6 % (42.0-52.0); Hemoglobin 16.3 g/dL (14.1-18.0)
[2022-05-06 11:24] LABS: Blood Urea Nitrogen 18 mg/dl (9-20); Estimated Glomerular Filt Rate 76 ml/min (>60); GFR (African American) 92 ML/MIN (>60)
== END ==
PROVIDERS: Internal Medicine; PCP Internal Medicine Adolescent Medicine; Visit Provider Internal Medicine Adolescent Medicine
DX: I25.10 Atherosclerotic heart disease of native coronary artery without angina pectoris (principal); Z95.5 Presence of coronary angioplasty implant and graft
CPT/HCPCS: 36415; 82565; 84520; 85014; 85018

== ENCOUNTER 2022-05-06 10:13 | Outpatient (RCR) | payer OTHER, SELFPAY | END 2022-06-04 11:00 | disposition home or self-care (01) | LOC: PT 10:13 | PROVIDERS: Visit Provider Internal Medicine | DX: I25.10 Atherosclerotic heart disease of native coronary artery without angina pectoris (principal); Z95.5 Presence of coronary angioplasty implant and graft | CPT/HCPCS: 93798 ==

== ENCOUNTER → 2022-06-03 09:25 | Outpatient (CLI) | payer OTHER, SELFPAY | PROVIDERS: PCP Internal Medicine Adolescent Medicine; Visit Provider Physician Assistant | DX: I25.10 Atherosclerotic heart disease of native coronary artery without angina pectoris (principal); I21.3 ST elevation (STEMI) myocardial infarction of unspecified site; I25.5 Ischemic cardiomyopathy; I10 Essential (primary) hypertension; E78.5 Hyperlipidemia, unspecified | CPT/HCPCS: 93306 ==

== ENCOUNTER → 2022-07-14 08:51 | Outpatient (CLI) | payer OTHER, SELFPAY ==
[2022-07-14 09:50] LABS: Basophils # 0.1 K/mm3 (0-0.2); Basophils % 0.7 % (0.1-2.0); Eosinophils # 0.1 K/mm3 (0.0-0.4); Eosinophils % 1.4 % (0.1-12.0); Hematocrit 50.6 % (42.0-52.0); Hemoglobin 16.4 g/dL (14.1-18.0); Lymphocytes # 2.1 K/mm3 (0.7-4.5); Mean Corpuscular HGB Conc 32.3 g/dL (31.8-35.4); Mean Corpuscular Hemoglobin 32.1 pg (27.0-31.2); Mean Corpuscular Volume 99.3 fl (80-94); Mean Platelet Volume 8.2 fl (7.4-10.4); Monocytes # 0.6 K/mm3 (0.1-1.0); Platelet Count 251 K/mm3 (142-424); Red Blood Count 5.09 M/mm3 (4.60-6.20); Red Cell Distribution Width 13.3 % (11.5-17.5); White Blood Count 6.9 K/mm3 (4.8-10.8)
[2022-07-14 09:51] LABS: Chloride 104 mmol/L (98-107); Potassium 4.1 mmoL/L (3.5-5.1); Sodium 141 mmol/L (136-145)
[2022-07-14 09:53] LABS: Blood Urea Nitrogen 14 mg/dl (9-20); Estimated Glomerular Filt Rate 76 ml/min (>60); GFR (African American) 92 ML/MIN (>60)
[2022-07-14 09:54] LABS: Alanine Aminotransferase 22 U/L (12-78); Albumin Level 4.1 g/dl (3.5-5.0); Albumin/Globulin Ratio 1.5 (1.1-1.8); Alkaline Phosphatase 84 U/L (38-126); Anion Gap 12.1 mEq/L (5-15); Aspartate Amino Transferase 24 U/L (17-59); Bilirubin,Total 0.6 mg/dl (0.2-1.3); Calcium 9.1 mg/dl (8.4-10.2); Carbon Dioxide 29 mmol/L (22.0-30.0); Chol/HDL Ratio 4.5 (1-3.5); Cholesterol 201 mg/dl (140-200); Globulin 2.8 g/dL (1.3-3.2); Glucose 91 mg/dl (74-100); HDL Cholesterol 45 mg/dl (40-60); Total Protein,Serum 6.9 g/dl (6.3-8.2); Triglycerides 112 mg/dl (30-150); VLDL Cholesterol 22 mg/dL (0-40)
[2022-07-14 10:05] LABS: Direct LDL Cholesterol 120.71 mg/dL (100-129)
[2022-07-14 10:13] LABS: Hemoglobin A1C 5.8 % (4.0-6.0)
== END ==
PROVIDERS: PCP Internal Medicine Adolescent Medicine; Visit Provider Physician Assistant
DX: I25.5 Ischemic cardiomyopathy (principal); I21.3 ST elevation (STEMI) myocardial infarction of unspecified site; I25.10 Atherosclerotic heart disease of native coronary artery without angina pectoris; I10 Essential (primary) hypertension; E78.2 Mixed hyperlipidemia; I51.9 Heart disease, unspecified; Z78.9 Other specified health status
CPT/HCPCS: 36415; 80053; 80061; 83036; 85025

== ENCOUNTER → 2022-09-16 08:20 | Outpatient (CLI) | payer OTHER, SELFPAY ==
[2022-09-16 09:56] LABS: Alanine Aminotransferase 38 U/L (12-78); Albumin Level 4.3 g/dl (3.5-5.0); Alkaline Phosphatase 93 U/L (38-126); Aspartate Amino Transferase 35 U/L (17-59); Bilirubin,Indirect 0.5 mg/dL (0.0-0.9); Bilirubin,Total 0.5 mg/dl (0.2-1.3); Bilirubin,Unconjugated 0.7 mg/dL (0.0-1.1); Chol/HDL Ratio 1.8 (1-3.5); Cholesterol 120 mg/dl (140-200); HDL Cholesterol 66 mg/dl (40-60); Total Protein,Serum 7.2 g/dl (6.3-8.2); Triglycerides 102 mg/dl (30-150); VLDL Cholesterol 20 mg/dL (0-40)
[2022-09-16 10:08] LABS: Direct LDL Cholesterol 46.66 mg/dL (100-129)
== END ==
PROVIDERS: PCP Internal Medicine Adolescent Medicine; Visit Provider Physician Assistant
DX: E78.2 Mixed hyperlipidemia (principal)
CPT/HCPCS: 36415; 80061; 80076

== ENCOUNTER → 2022-09-25 07:44 | Outpatient (CLI) | payer OTHER, SELFPAY | PROVIDERS: PCP Internal Medicine Adolescent Medicine; Visit Provider Physician Assistant | DX: I25.10 Atherosclerotic heart disease of native coronary artery without angina pectoris (principal); I25.5 Ischemic cardiomyopathy; I10 Essential (primary) hypertension; E78.2 Mixed hyperlipidemia | CPT/HCPCS: 93306 ==

== ENCOUNTER → 2023-03-19 07:19 | Outpatient (CLI) | payer OTHER, SELFPAY ==
[2023-03-19 07:34] LABS: Basophils # 0.1 K/mm3 (0-0.2); Basophils % 0.9 % (0.1-2.0); Eosinophils # 0.1 K/mm3 (0.0-0.4); Eosinophils % 1.9 % (0.1-12.0); Hematocrit 48.2 % (42.0-52.0); Lymphocytes # 2.3 K/mm3 (0.7-4.5); Lymphocytes % 39.5 % (10-50); Mean Corpuscular HGB Conc 33.1 g/dL (31.8-35.4); Mean Corpuscular Hemoglobin 32.1 pg (27.0-31.2); Mean Corpuscular Volume 97.2 fl (80-94); Mean Platelet Volume 7.3 fl (7.4-10.4); Monocytes # 0.4 K/mm3 (0.1-1.0); Monocytes % 7.8 % (1.7-9.3); Neutrophils # 2.8 K/mm3 (1.8-7.8); Platelet Count 237 K/mm3 (142-424); Red Blood Count 4.96 M/mm3 (4.60-6.20); Red Cell Distribution Width 13.2 % (11.5-17.5); White Blood Count 5.7 K/mm3 (4.8-10.8)
[2023-03-19 08:47] LABS: Chloride 103 mmol/L (98-107)
[2023-03-19 08:48] LABS: Potassium 4.2 mmoL/L (3.5-5.1); Sodium 141 mmol/L (136-145)
[2023-03-19 08:50] LABS: Anion Gap 14.2 mEq/L (5-15); Bilirubin,Unconjugated 0.5 mg/dL (0.0-1.1); Blood Urea Nitrogen 23 mg/dl (9-20); Carbon Dioxide 28 mmol/L (22.0-30.0); Estimated Glomerular Filt Rate 68 ml/min (>60); GFR (African American) 82 ML/MIN (>60)
[2023-03-19 08:51] LABS: Alanine Aminotransferase 28 U/L (12-78); Albumin Level 4.6 g/dl (3.5-5.0); Alkaline Phosphatase 73 U/L (38-126); Aspartate Amino Transferase 32 U/L (17-59); Bilirubin,Direct 0.1 mg/dl (0.0-0.4); Bilirubin,Indirect 0.6 mg/dL (0.0-0.9); Bilirubin,Total 0.7 mg/dl (0.2-1.3); Calcium 9.4 mg/dl (8.4-10.2); Cholesterol 190 mg/dl (140-200); Glucose 102 mg/dl (74-100); Total Protein,Serum 7.7 g/dl (6.3-8.2); Triglycerides 77 mg/dl (30-150); VLDL Cholesterol 15 mg/dL (0-40)
[2023-03-19 08:52] LABS: HDL Cholesterol 47 mg/dl (40-60)
[2023-03-19 09:07] LABS: Free T4 (Free Thyroxine) 0.77 ng/dl (0.78-2.19)
[2023-03-19 09:09] LABS: Direct LDL Cholesterol 110.43 mg/dL (100-129)
[2023-03-19 09:21] LABS: Thyroid Stimulating Hormone 1.42 uIU/mL (0.465-4.68)
== END ==
PROVIDERS: PCP Internal Medicine Adolescent Medicine; Visit Provider Physician Assistant
DX: E78.5 Hyperlipidemia, unspecified (principal); I11.9 Hypertensive heart disease without heart failure; I25.10 Atherosclerotic heart disease of native coronary artery without angina pectoris; I25.5 Ischemic cardiomyopathy; R06.83 Snoring; R40.0 Somnolence; R53.83 Other fatigue
CPT/HCPCS: 36415; 80048; 80061; 80076; 83735; 84439; 84443; 85025

== ENCOUNTER 2023-06-21 14:20 | Outpatient (CLI) | payer OTHER, SELFPAY ==
--- NOTE | 2023-06-21 14:52 | XR_ITS ---
FINAL REPORT CLINICAL HISTORY: FEVER, SOA, COUGH COMPARISON: 04/28/2022 FINDINGS: TWO-VIEW CHEST The heart size is normal. The mediastinum is normal. The lungs are better inflated. There is mild linear scarring at the bases. There is no pneumothorax. IMPRESSION: No acute cardiopulmonary process. Reviewed, Interpreted and Dictated by Garry Corrigan MD Transcribed by Ana Pedroza Authenticated and [facility]
[2023-06-21 14:57] LABS: Basophils # 0.1 K/mm3 (0-0.2); Basophils % 1.3 % (0.1-2.0); Eosinophils # 0.2 K/mm3 (0.0-0.4); Eosinophils % 3.1 % (0.1-12.0); Hematocrit 45.1 % (42.0-52.0); Lymphocytes # 2.1 K/mm3 (0.7-4.5); Lymphocytes % 29.5 % (10-50); Mean Corpuscular HGB Conc 33.4 g/dL (31.8-35.4); Mean Corpuscular Volume 101.9 fl (80-94); Mean Platelet Volume 7.7 fl (7.4-10.4); Monocytes # 0.6 K/mm3 (0.1-1.0); Monocytes % 8.6 % (1.7-9.3); Neutrophils # 4.1 K/mm3 (1.8-7.8); Neutrophils % 57.4 % (37.0-80.0); Platelet Count 313 K/mm3 (142-424); Red Blood Count 4.42 M/mm3 (4.60-6.20); Red Cell Distribution Width 13.4 % (11.5-17.5)
[2023-06-21 16:04] LABS: Alanine Aminotransferase 27 U/L (12-78); Albumin Level 4.1 g/dl (3.5-5.0); Albumin/Globulin Ratio 1.3 (1.1-1.8); Alkaline Phosphatase 77 U/L (38-126); Anion Gap 11.2 mEq/L (5-15); Aspartate Amino Transferase 28 U/L (17-59); Bilirubin,Total 0.4 mg/dl (0.2-1.3); Blood Urea Nitrogen 17 mg/dl (9-20); Calcium 9.5 mg/dl (8.4-10.2); Carbon Dioxide 30 mmol/L (22.0-30.0); Chloride 103 mmol/L (98-107); Estimated Glomerular Filt Rate 86 ml/min (>60); GFR (African American) 103 ML/MIN (>60); Globulin 3.1 g/dL (1.3-3.2); Glucose 126 mg/dl (74-100); Potassium 4.2 mmoL/L (3.5-5.1); Sodium 140 mmol/L (136-145); Total Protein,Serum 7.2 g/dl (6.3-8.2)
[2023-06-22 16:29] LABS: EBV Ab VCA, IgM <36.0 U/mL (0.0-35.9)
== END 2023-06-21 23:59 ==
LOC: LAB 14:21
PROVIDERS: PCP Internal Medicine Adolescent Medicine; Visit Provider Internal Medicine Adolescent Medicine
DX: R50.9 Fever, unspecified (principal); R73.09 Other abnormal glucose; B27.90 Infectious mononucleosis, unspecified without complication
CPT/HCPCS: 36415; 71046; 80053; 85025; 86665; 87040

== ENCOUNTER 2023-10-22 07:50 | Outpatient (CLI) | payer OTHER, SELFPAY ==
--- NOTE | 2023-10-22 07:50 | CA_ITS ---
APPROVED REPORT EXAM: Comprehensive 2D, Doppler, and color-flow Echocardiogram Focus Puller: Shakira Bean RDCS Ht: 6 ft 0 in Wt: 209lbs BSA: 2.17 BP: 170/100 mmHg Indications: CAD,CM,HTN M-Mode Dimensions RVDd 2.70 cm (0.9-2.6) LA Diam 4.16 cm (1.9-4.0) LVDd 5.51 cm (3.5-5.7) LVDs 4.22 cm (3.5-5.7) IVSd 0.93 cm (0.6-1.1) PWd 0.68 cm (0.6-1.1) EF (Teich) 46.30% FS 23.40% EDV (Teich) 148.00 mL ESV (Teich) 79.50 mL LV Diastology E Decel Time 190 (160-240 msec) E/A Ratio 0.8 Mitral Valve MV E Max Parvez. 65.0 (40-130 cm/s) MV A Velocity 83.0 (40-130 cm/s) E/A Ratio 0.78 MV PHT 56.0 ms Left Ventricle The left ventricle is normal size. The left ventricular systolic function is low normal. There is normal left ventricular wall thickness. There is normal LV segmental wall motion. Transmitral Doppler flow pattern suggests impaired LV relaxation. LVEF is 50%. Right Ventricle The right ventricle is mildly dilated. The right ventricular systolic function is normal. Atria The left atrium size is normal. The right atrium size is normal. There is no Doppler evidence of interatrial shunt. Aortic Valve The aortic valve is mildly thickened. There is no aortic valvular stenosis. No aortic regurgitation is present. Mitral Valve The mitral valve is normal in structure. No evidence of mitral valve stenosis. Trace mitral regurgitation. Tricuspid Valve The tricuspid valve leaflets are thin and pliable. Trace tricuspid regurgitation. There is insufficient TR jet to estimate RVSP. Pulmonic Valve The pulmonary valve is normal in structure. Trace pulmonic regurgitation. Great Vessels The aortic root is normal in size. The ascending aorta is not well-visualized. IVC is normal in size and collapses >50% with inspiration. Pericardium There is no pericardial effusion. Other Information Study Quality: Fair Conclusion Low normal LV systolic function (LVEF 50%). Normal RV size and function. Mild LA dilation. No significant valvular stenosis or regurgitation. Electronically signed by : Bess Green MD 10/24/2023 00:35:54
== END 2023-10-22 23:59 | disposition home or self-care (01) ==
LOC: RT 07:50
PROVIDERS: PCP Internal Medicine Adolescent Medicine; Visit Provider Physician Assistant
DX: I25.5 Ischemic cardiomyopathy (principal)
CPT/HCPCS: 93306

== ENCOUNTER 2023-10-27 07:05 | Outpatient (CLI) | payer OTHER, SELFPAY ==
[2023-10-27 07:37] LABS: Basophils # 0.1 K/mm3 (0-0.2); Basophils % 1.1 % (0.1-2.0); Eosinophils # 0.2 K/mm3 (0.0-0.4); Eosinophils % 2.3 % (0.1-12.0); Hematocrit 47.8 % (42.0-52.0); Hemoglobin 15.4 g/dL (14.1-18.0); Lymphocytes # 2.1 K/mm3 (0.7-4.5); Lymphocytes % 31.2 % (10-50); Mean Corpuscular HGB Conc 32.3 g/dL (31.8-35.4); Mean Corpuscular Hemoglobin 33.1 pg (27.0-31.2); Mean Corpuscular Volume 102.5 fl (80-94); Mean Platelet Volume 7.8 fl (7.4-10.4); Monocytes # 0.6 K/mm3 (0.1-1.0); Neutrophils # 3.8 K/mm3 (1.8-7.8); Neutrophils % 56.4 % (37.0-80.0); Platelet Count 242 K/mm3 (142-424); Red Blood Count 4.66 M/mm3 (4.60-6.20); White Blood Count 6.8 K/mm3 (4.8-10.8)
[2023-10-27 09:14] LABS: Alanine Aminotransferase 41 U/L (12-78); Albumin Level 4.1 g/dl (3.5-5.0); Alkaline Phosphatase 64 U/L (38-126); Anion Gap 11.4 mEq/L (5-15); Aspartate Amino Transferase 31 U/L (17-59); Bilirubin,Indirect 0.7 mg/dL (0.0-0.9); Bilirubin,Total 0.7 mg/dl (0.2-1.3); Bilirubin,Unconjugated 0.7 mg/dL (0.0-1.1); Blood Urea Nitrogen 18 mg/dl (9-20); Calcium 9.6 mg/dl (8.4-10.2); Carbon Dioxide 28 mmol/L (22.0-30.0); Chloride 105 mmol/L (98-107); Chol/HDL Ratio 3.8 (1-3.5); Cholesterol 193 mg/dl (140-200); Estimated Glomerular Filt Rate 76 ml/min (>60); GFR (African American) 92 ML/MIN (>60); Glucose 97 mg/dl (74-100); HDL Cholesterol 51 mg/dl (40-60); Magnesium 1.9 mg/dl (1.6-2.3); Potassium 4.4 mmoL/L (3.5-5.1); Sodium 140 mmol/L (136-145); Total Protein,Serum 7.1 g/dl (6.3-8.2); Triglycerides 98 mg/dl (30-150); VLDL Cholesterol 20 mg/dL (0-40)
[2023-10-27 09:27] LABS: Free T4 (Free Thyroxine) 0.91 ng/dl (0.78-2.19)
[2023-10-27 09:44] LABS: Thyroid Stimulating Hormone 1.59 uIU/mL (0.465-4.68)
== END 2023-10-27 23:59 | disposition home or self-care (01) ==
PROVIDERS: PCP Internal Medicine Adolescent Medicine; Visit Provider Physician Assistant
DX: R53.83 Other fatigue (principal); I25.10 Atherosclerotic heart disease of native coronary artery without angina pectoris; I10 Essential (primary) hypertension; E78.2 Mixed hyperlipidemia; I25.5 Ischemic cardiomyopathy
CPT/HCPCS: 36415; 80048; 80061; 80076; 83735; 84439; 84443; 85025

== ENCOUNTER → 2023-11-15 07:21 | Outpatient (CLI) | payer OTHER, SELFPAY | LOC: SL 07:21 | PROVIDERS: PCP Internal Medicine Adolescent Medicine; Visit Provider Physician Assistant | DX: G47.33 Obstructive sleep apnea (adult) (pediatric) (principal); G47.36 Sleep related hypoventilation in conditions classified elsewhere | CPT/HCPCS: G0399 ==

== ENCOUNTER 2024-01-01 17:25 | Emergency (ER) | payer OTHER, SELFPAY ==
[2024-01-01 17:26] VITALS: BP 168/95; PULSE 72; RESP 18; TEMP 36.9; O2SAT 99; BMI 29.4
--- NOTE | 2024-01-01 17:41 | CT_ITS ---
PROCEDURE INFORMATION: Exam: CT Abdomen And Pelvis Without Contrast Exam date and time: 01/01/2024 6:02 PM Age: 63 years old Clinical indication: Pain; Other: Right flank; Additional info: Flank pain, HX kidney stone TECHNIQUE: Imaging protocol: Computed tomography of the abdomen and pelvis without contrast. Radiation optimization: All CT scans at this facility use at least one of these dose optimization techniques: automated exposure control; mA and/or kV adjustment per patient size (includes targeted exams where dose is matched to clinical indication); or iterative reconstruction. COMPARISON: CR XR CHEST 2V 06/21/2023 2:54 PM FINDINGS: Liver: Normal. No mass. Gallbladder and biliary ducts: Normal. No calcified stones. No ductal dilation. Pancreas: Normal. No ductal dilation. Spleen: Normal. No splenomegaly. Adrenal glands: Normal. No mass. Kidneys and ureters: 4.4 mm stone in the distal right ureter producing mild right hydroureteronephrosis. A few small to moderate-sized calyceal stones in both kidneys. Stomach and bowel: Mild sigmoid diverticulosis. No bowel wall thickening or evidence of bowel obstruction. Appendix: The appendix is visualized and appears normal. Intraperitoneal space: Unremarkable. No free air. No significant fluid collection. Vasculature: Moderate atherosclerotic calcification throughout the aorta and iliac arteries. No evidence of aneurysm. Lymph nodes: Unremarkable. No enlarged lymph nodes. Urinary bladder: Unremarkable as visualized. Reproductive: Unremarkable as visualized. Bones/joints: Moderate degenerative changes throughout the lumbar spine. No vertebral body compression or acute fracture. Soft tissues: Unremarkable. IMPRESSION: 4.4 mm distal right ureter stone with mild hydronephrosis. Mild bilateral nephrolithiasis also noted. Other chronic incidental findings as noted.
--- NOTE | 2024-01-01 17:48 | ED_ITS ---
<Statement entered by Trevon Castillo MD - 01/01/24 22:01> I was consulted by the BHARGAVI, and we discussed the complexity of the problems being addressed. I approved the treatment and management plan for this patient's care in the emergency department, thus performing a substantive portion of the medical decision making. Trevon Castillo MD, YOANDY, FACEP Discharge Plan Disposition Patient Disposition: Home, Self-Care Condition: Good Prescriptions Prescriptions: New ibuprofen 800 mg tablet 800 mg PO Q8H PRN (Reason: pain) 3 Days Qty: 14 0RF tamsulosin [Flomax] 0.4 mg capsule 0.4 mg PO DAILY Qty: 3 0RF ondansetron 4 mg tablet,disintegrating 4 mg PO Q8H PRN (Reason: nausea and vomiting) Qty: 10 0RF No Action bisoprolol fumarate 10 mg tablet 10 mg PO DAILY pantoprazole 40 mg tablet,delayed release (DR/EC) PO hydrocortisone [Procto-Med HC] 2.5 % cream with perineal applicator 1 applic [place] DAILY clobetasol 0.05 % ointment 1 applic topical ONCE aspirin 81 mg tablet,delayed release (DR/EC) See Rx Instructions .ROUTE .COMPLEX Qty: 90 1RF Dose Instruction: TAKE 1 TABLET BY MOUTH DAILY Rx Instructions: TAKE 1 TABLET BY MOUTH DAILY pitavastatin calcium 4 mg tablet 4 mg PO DAILY Qty: 30 5RF valsartan 40 mg tablet 40 mg PO BID Qty: 60 5RF Referrals Follow up/Referrals: Den Caceres MD [Primary Care Provider] - See instructions Activity Restrictions/Add. Instructions Additional Instructions/Restrictions: Strain urine Medications as ordered Symptoms worsen or do not improve return Follow-up with PCP this week Follow-up with urology call for an appointment on Wednesday Increase fluids Clinical Impressions Clinical Impression: Kidney stone on right side Instructions Patient Instructions: Kidney Stones -- Adult, DI for Kidney Stones Print Language Print Language: Albanian Discharge ED Provider: Trevon Castillo General Adult HPI General Chief complaint: Urogenital-Male Stated complaint: Lower back pain,? kidney stone Time Seen by Provider: 01/01/24 17:39 Mode of Arrival: Ambulatory Source of Information: Patient Limitations: No Limitations Description of Symptoms (Recalled from ER Triage Doc. by RN): r flank pain into groin History of Present Illness HPI narrative: 63-year-old male presents for right flank pain. Patient states he has a history of kidney stones and was told he had stones in his kidney. Patient states pain is in the right flank that moves around to abdomen. Patient states pain started around noon today. Patient rates pain 8 out of 10 Related Data Home Medications ?Medication ?Instructions ?Recorded ?Confirmed bisoprolol fumarate 10 mg tablet 10 mg PO DAILY 10/19/23 11/03/23 clobetasol 0.05 % topical ointment 1 applic topical ONCE 11/03/23 11/03/23 hydrocortisone 2.5 % topical cream 1 applic [place] DAILY 11/03/23 11/03/23 with perineal applicator ([employer]edIn Solutionsto-Med ) pantoprazole 40 mg tablet,delayed mg PO 11/03/23 11/03/23 release Previous Rx's ?Medication ?Instructions ?Recorded aspirin 81 mg tablet,delayed See Rx Instructions .Route 12/14/22 release .COMPLEX #90 tabs pitavastatin calcium 4 mg tablet 4 mg PO DAILY #30 tabs 10/27/23 valsartan 40 mg tablet 40 mg PO BID #60 tabs 11/15/23 ibuprofen 800 mg tablet 800 mg PO Q8H PRN pain 3 days #14 01/01/24 tabs ondansetron 4 mg disintegrating 4 mg PO Q8H PRN nausea and 01/01/24 tablet vomiting #10 tabs tamsulosin 0.4 mg capsule (Flomax) 0.4 mg PO DAILY #3 caps 01/01/24 Allergies Allergy/AdvReac Type Severity Reaction Status Date / Time atorvastatin [From Lipitor] AdvReac Severe Verified 11/03/23 09:22 evolocumab AdvReac Severe Verified 11/03/23 09:22 [From Repatha SureClick] rosuvastatin [From Crestor] AdvReac Severe Verified 11/03/23 09:22 [facility] Disclaimer: The information contained in this section may have been updated after the patient was seen, as this information can be updated by other users. Medical History , LABORATORY TECH) SUKHJINDER (obstructive sleep apnea) Hyperlipidemia Cataract fragments of both eyes following cataract surgery Fatigue Snoring Daytime somnolence Coronary artery disease HTN (hypertension) LV dysfunction Hypertension Family History , LABORATORY TECH) Family history of cancer Family history of hypertension Social History , LABORATORY TECH) Smoking Status: Former smoker alcohol intake: never current occupational status: employed Travel in the last 8 weeks: None Other Medical History Have you received the Flu Vaccine for this season: No Have you received the Pneumonia Vaccine: No ROS Obtained: Yes Systems reviewed as appropriate & no additional complaints except as documented Gastrointestinal Gastrointestingal: Reports system reviewed and no additional complaints, except as documented, as per HPI and abdominal pain Physical Exam General General appearance: alert and in no apparent distress Eye Eye exam: Present normal appearance Respiratory Respiratory exam: Present normal lung sounds bilaterally Cardiovascular Cardiovascular exam: Present regular rate and normal rhythm Abdominal Exam Abdominal exam: Present soft, tenderness and hyperactive bowel sounds Back Exam Back exam: Present CVA tenderness (R) Neurological Exam Neurological exam: Present alert and oriented X3 Skin Skin exam: Present warm and intact Medical Decision Making Medical Records Medical records reviewed: Yes I reviewed the patient's medical records. Screening: Per USPSTF and CDC recommendations, given the prevalence of disease in our region, it is our hospital?s policy to screen for HIV and viral Hepatitis for all patients aged 18 and over and those with ongoing risk factors. Justin Inquiry Pt receiving controlled substance: No Vital Signs: 01/01/24 17:26 01/01/24 17:54 01/01/24 18:30 Temperature 98.4 F Temperature Source Oral Pulse Rate 70 67 Pulse Rate [Right] 72 Respiratory Rate 18 18 Blood Pressure 162/85 H 142/79 H Blood Pressure [Right Arm] 168/95 H Blood Pressure Mean 110 100 Blood Pressure Mean [Right Arm] 119 02 Sat by Pulse Oximetry 99 98 96 Oxygen Delivery Method Room Air 01/01/24 19:30 Temperature Temperature Source Pulse Rate 68 Pulse Rate [Right] Respiratory Rate Blood Pressure 142/80 H Blood Pressure [Right Arm] Blood Pressure Mean Blood Pressure Mean [Right Arm] 02 Sat by Pulse Oximetry 95 Oxygen Delivery Method Lab Data Lab Results 01/01/24 17:34: WBC 10.0, RBC 4.10 L, Hgb 13.9 L, Hct 40.9 L, MCV 99.7 H, MCH 33.8 H, MCHC 33.9, RDW 13.9, Plt Count 231, MPV 7.8, Neut % (Auto) 75.9, Lymph % (Auto) 15.8, [place] % (Auto) 6.9, Eos % (Auto) 0.6, Baso % (Auto) 0.8, Neut # (Auto) 7.6, Lymph # (Auto) 1.6, [place] # (Auto) 0.7, Eos # (Auto) 0.1, Baso # (Auto) 0.1, Total Counted 100, Neutrophils % (Manual) 61, Lymphocytes % (Manual) 25, Monocytes % (Manual) 14 H, Platelet Estimate Normal, Hypochromasia 1+, Poikilocytosis 1+, Anisocytosis 1+, Microcytosis 1+, Spherocytes 1+, Ovalocytes 1+, Sodium 141, Potassium 4.2, Chloride 102, Carbon Dioxide 29, Anion Gap 14.2, BUN 19, Creatinine 1.40 H, Estimated Creat Clear 72, Estimated GFR 51 L, Est GFR ( Amer) 62, Glucose 137 H, Calcium 9.9, Total Bilirubin 0.6, AST 34, ALT 40, Alkaline Phosphatase 64, Total Protein 7.8, Albumin 4.6, Globulin 3.2, Albumin/Globulin Ratio 1.4, HIV 1&2 Antibody Rapid Nonreactive 01/01/24 17:45: Urine Color Yellow, Urine Appearance Clear, Urine pH 5.5, Ur Specific Everson >= 1.030, Urine Protein Negative, Urine Glucose (UA) Negative, Urine Ketones Negative, Urine Blood 3+ A, Urine Nitrate Negative, Urine Bilirubin Negative, Urine Urobilinogen 0.2, Ur Leukocyte Esterase Negative, Urine RBC 10-20, Urine WBC Occasional, Ur Squamous Epith Cells Occasional, Urine Bacteria Trace, Urine Mucus Trace 01/01/24 17:34 01/01/24 17:34 Orders (Tests/Meds): ED MEDICATIONS Generic Name Dose Route Start Last Admin Trade Name Freq PRN Reason Stop Dose Admin Sodium Chloride 1,000 mls @ 250 mls/hr 01/01/24 17:45 01/01/24 17:49 Sod Chlor 0.9% 1000ml Bag IV 01/31/24 17:44 250 mls/hr .Q4H DRAKE Administration Discontinued Medications Generic Name Dose Route Start Last Admin Trade Name Freq PRN Reason Stop Dose Admin Ketorolac Tromethamine 15 mg 01/01/24 17:45 01/01/24 17:49 Ketorolac 30mg/Ml Vial IV 01/01/24 17:46 15 mg ONCE ONE Administration ORDERS Category Date Time Status CT abdomen pelvis wo con Stat Cat Scan 01/01/24 17:41 Completed CBC Man Diff [Complete Blood Count Man Dif] Stat Lab 01/01/24 17:34 Completed CMP [Comprehensive Metabolic Panel] Stat Lab 01/01/24 17:34 Completed HIV (1&2) Antibody Rapid Stat Lab 01/01/24 17:34 Completed Hep C Ab with Reflex to RNA Stat Lab 01/01/24 17:34 Received Urinalysis and Microscopic Stat Lab 01/01/24 17:45 Completed Reevaluation(s) Time: 18:25 Reevaluation #1: Patient states pains much improved now 3-4 out of 10 Medical Decision Narrative: In summary patient is a 63-year-old male who presents to the emergency department for evaluation of right flank pain, history of kidney stone. Patient is hemodynamic stable upon arrival, febrile. Right flank pain. Differential diagnosis includes kidney stone. Initial workup will be conducted with labs, CT abdomen pelvis, normal saline, Toradol 15 mg IV, urinalysis. Initial inventions include IV fluids, Toradol,. Initial workup reviewed CT shows 4.4 mm stone with mild hydronephrosis, all other labs unremarkable. Upon repeat evaluation patient was able to urinate without any difficulty states pain is a 3. Given this patient was appropriate for discharge at this time. Critical Care Critical Care Time Critical Care Time: No
[2024-01-01] MEDS: KETOROLAC 30MG/ML VIAL 15 MG IV (17:49)
[2024-01-01] MEDS: 0.9 % SODIUM CHLORIDE 1000ML 1,000 ML 250 ML IV (17:49)
[2024-01-01 17:50] LABS: MANUAL DIFFERENTIAL MANUAL DIFFERENTIAL (MANUAL DIFF)
[2024-01-01 17:51] LABS: Basophils # 0.1 K/mm3 (0-0.2); Basophils % 0.8 % (0.1-2.0); Eosinophils # 0.1 K/mm3 (0.0-0.4); Eosinophils % 0.6 % (0.1-12.0); Hematocrit 40.9 % (42.0-52.0); Hemoglobin 13.9 g/dL (14.1-18.0); Lymphocytes # 1.6 K/mm3 (0.7-4.5); Lymphocytes % 15.8 % (10-50); Mean Corpuscular HGB Conc 33.9 g/dL (31.8-35.4); Mean Corpuscular Hemoglobin 33.8 pg (27.0-31.2); Mean Corpuscular Volume 99.7 fl (80-94); Mean Platelet Volume 7.8 fl (7.4-10.4); Monocytes # 0.7 K/mm3 (0.1-1.0); Monocytes % 6.9 % (1.7-9.3); Neutrophils # 7.6 K/mm3 (1.8-7.8); Neutrophils % 75.9 % (37.0-80.0); Platelet Count 231 K/mm3 (142-424); Red Cell Distribution Width 13.9 % (11.5-17.5)
[2024-01-01 17:54] VITALS: BP 162/85; PULSE 70; RESP 18; O2SAT 98
[2024-01-01 17:54] LABS: Microscopic, Urine URINE MICROSCOPIC (MICROSCOPIC)
[2024-01-01 18:01] LABS: Albumin Level 4.6 g/dl (3.5-5.0); Chloride 102 mmol/L (98-107); Potassium 4.2 mmoL/L (3.5-5.1); Sodium 141 mmol/L (136-145)
[2024-01-01 18:05] LABS: Alanine Aminotransferase 40 U/L (12-78); Albumin/Globulin Ratio 1.4 (1.1-1.8); Alkaline Phosphatase 64 U/L (38-126); Anion Gap 14.2 mEq/L (5-15); Aspartate Amino Transferase 34 U/L (17-59); Bilirubin,Total 0.6 mg/dl (0.2-1.3); Blood Urea Nitrogen 19 mg/dl (9-20); Calcium 9.9 mg/dl (8.4-10.2); Carbon Dioxide 29 mmol/L (22.0-30.0); Creatinine Clearance Estimated 72 mL/min (50-200); Estimated Glomerular Filt Rate 51 ml/min (>60); GFR (African American) 62 ML/MIN (>60); Globulin 3.2 g/dL (1.3-3.2); Glucose 137 mg/dl (74-100); Total Protein,Serum 7.8 g/dl (6.3-8.2)
[2024-01-01 18:09] LABS: Appearance,Urine CLEAR (Clear); Bilirubin,Urine Negative (Negative); Blood, Urine 3+ (Negative); Color,Urine YELLOW (Yellow); Glucose,Urine (UA) Negative (Negative); Ketones,Urine Negative (Negative); Leukocyte Esterase,Urine Negative (Negative); Nitrate,Urine Negative (Negative); PH,Urine 5.5 (5.0-8.5); Protein,Urine Negative (Negative); Specific Gravity, Urine >= 1.030 (1.005-1.030); Urobilinogen,Urine 0.2 EU/dl (0.2)
[2024-01-01 18:30] VITALS: BP 142/79; PULSE 67; O2SAT 96
[2024-01-01 18:50] LABS: Hypochromasia 1+; Lymphocytes % 25 % (10-50); Microcytosis 1+; Monocytes % 14 % (2-9); Neutrophils % 61 % (42-76); Platelet Estimate Normal; Spherocytes 1+; Total Cells Counted 100
[2024-01-01 18:52] LABS: Anisocytosis 1+; Ovalocytes 1+; Poikilocytosis 1+
[2024-01-01 18:59] LABS: Bacteria,Urine Trace /lpf; Mucus,Urine Trace /lpf; Squamous Epithelial Cell,Urine Occasional #/hpf (0-5); WBC,Urine Occasional #/hpf (0-3)
[2024-01-01 19:30] VITALS: BP 142/80; PULSE 68; O2SAT 95
[2024-01-01 20:25] LABS: HIV (1&2) Antibody Rapid NONREACTIVE (NONREACTIVE)
[2024-01-01 20:45] VITALS: BP 142/80; PULSE 68; RESP 18; TEMP 36.5; O2SAT 96
[2024-01-04 05:15] LABS: HCV Ab Non Reactive (Non Reactive)
== END 2024-01-01 20:53 | disposition home or self-care (01) ==
PROVIDERS: Nurse Practitioner Family; Emergency Provider Student in an Organized Health Care Education/Training Program; PCP Internal Medicine Adolescent Medicine
DX: M54.50 Low back pain, unspecified (principal); R10.9 Unspecified abdominal pain; N20.0 Calculus of kidney
CPT/HCPCS: 74176; 80053; 81001; 85007; 85014; 85018; 85048; 85049; 86803; 87389; 96360; 96361; 96374; 99285; J1885; J7030

== ENCOUNTER 2024-05-05 07:00 | Outpatient (CLI) | payer OTHER, SELFPAY ==
[2024-05-05 07:41] LABS: Basophils % 0.6 % (0.1-2.0); Eosinophils # 0.1 K/mm3 (0.0-0.4); Eosinophils % 1.6 % (0.1-12.0); Hemoglobin 14.3 g/dL (14.1-18.0); Lymphocytes # 1.9 K/mm3 (0.7-4.5); Lymphocytes % 30.7 % (10-50); Mean Corpuscular HGB Conc 33.3 g/dL (31.8-35.4); Mean Corpuscular Hemoglobin 31.8 pg (27.0-31.2); Mean Corpuscular Volume 95.8 fl (80-94); Mean Platelet Volume 9.6 fl (7.4-10.4); Monocytes # 0.8 K/mm3 (0.1-1.0); Monocytes % 12.4 % (1.7-9.3); Neutrophils # 3.4 K/mm3 (1.8-7.8); Neutrophils % 54.5 % (37.0-80.0); Platelet Count 196 K/mm3 (142-424); Red Blood Count 4.49 M/mm3 (4.60-6.20); Red Cell Distribution Width 13.2 % (11.5-17.5); White Blood Count 6.2 K/mm3 (4.8-10.8)
[2024-05-05 08:33] LABS: Albumin Level 4.7 g/dl (3.5-5.0); Chloride 105 mmol/L (98-107); Potassium 4.4 mmoL/L (3.5-5.1); Sodium 142 mmol/L (136-145)
[2024-05-05 08:35] LABS: Blood Urea Nitrogen 18 mg/dl (9-20); Estimated Glomerular Filt Rate 75 ml/min (>60); GFR (African American) 91 ML/MIN (>60)
[2024-05-05 08:36] LABS: Alanine Aminotransferase 35 U/L (12-78); Alkaline Phosphatase 77 U/L (38-126); Anion Gap 13.4 mEq/L (5-15); Aspartate Amino Transferase 32 U/L (17-59); Bilirubin,Direct 0.1 mg/dl (0.0-0.4); Bilirubin,Indirect 0.5 mg/dL (0.0-0.9); Bilirubin,Total 0.6 mg/dl (0.2-1.3); Bilirubin,Unconjugated 0.6 mg/dL (0.0-1.1); Calcium 9.9 mg/dl (8.4-10.2); Carbon Dioxide 28 mmol/L (22.0-30.0); Cholesterol 171 mg/dl (140-200); Glucose 98 mg/dl (74-100); Total Protein,Serum 7.3 g/dl (6.3-8.2); Triglycerides 124 mg/dl (30-150); VLDL Cholesterol 25 mg/dL (0-40)
[2024-05-05 08:37] LABS: Chol/HDL Ratio 3.8 (1-3.5); HDL Cholesterol 45 mg/dl (40-60); Magnesium 2.1 mg/dl (1.6-2.3)
[2024-05-05 08:49] LABS: Direct LDL Cholesterol 94.89 mg/dL (100-129)
[2024-05-05 08:52] LABS: Free T4 (Free Thyroxine) 0.95 ng/dl (0.78-2.19)
[2024-05-05 09:08] LABS: Thyroid Stimulating Hormone 2.11 uIU/mL (0.465-4.68)
== END 2024-05-05 23:59 | disposition home or self-care (01) ==
LOC: LAB 07:00
PROVIDERS: PCP Internal Medicine Adolescent Medicine; Visit Provider Physician Assistant
DX: I25.10 Atherosclerotic heart disease of native coronary artery without angina pectoris (principal); I10 Essential (primary) hypertension; E78.2 Mixed hyperlipidemia; I25.5 Ischemic cardiomyopathy
CPT/HCPCS: 36415; 80048; 80061; 80076; 83735; 84439; 84443; 85025

== ENCOUNTER 2024-05-16 11:50 | Outpatient (CLI) | payer OTHER, SELFPAY ==
--- NOTE | 2024-05-16 11:53 | XR_ITS ---
FINAL REPORT CLINICAL HISTORY: PAIN FINDINGS: AP, lateral and oblique views of the right knee were obtained. There is no prior exam for comparison. There is no acute osseous abnormality of the right knee. The joint space is preserved. The soft tissues are normal. There is no joint effusion. IMPRESSION: No acute osseous abnormality of the right knee. Reviewed, Interpreted and Dictated by Isaura Gillette MD Transcribed by Ana Pedroza Authenticated and [facility]
--- NOTE | 2024-05-16 11:53 | XR_ITS ---
FINAL REPORT CLINICAL HISTORY: PAIN LEFT KNEE FINDINGS: AP, lateral and oblique views of the left knee were obtained. There is no prior exam for comparison. There is no acute osseous abnormality of the left knee. The joint space is preserved. There is chondrocalcinosis of the medial compartment. Calcified posterior loose body may be within a popliteal cyst. There is no joint effusion. IMPRESSION: No acute osseous abnormality of the left knee. Reviewed, Interpreted and Dictated by Isaura Gillette MD Transcribed by Ana Pedroza Authenticated and [facility]
== END 2024-05-16 23:59 | disposition home or self-care (01) ==
LOC: RAD 11:51
PROVIDERS: PCP Internal Medicine Adolescent Medicine; Visit Provider Internal Medicine Adolescent Medicine
DX: M25.561 Pain in right knee (principal); M25.562 Pain in left knee
CPT/HCPCS: 73562

== ENCOUNTER 2024-05-24 06:49 | Outpatient (CLI) | payer OTHER, SELFPAY ==
--- NOTE | 2024-05-24 06:53 | CT_ITS ---
FINAL REPORT CLINICAL HISTORY: TOBACCO USE FORMER SMOKER QUIT 2 YEARS AGO, 1PPD X45 YEARS COMPARISON: None FINDINGS: CT CHEST LOW DOSE SCREENING HISTORY: Screening exam for lung cancer. 64-year-old male, former smoker who quit 2 years ago, 45 pack year smoking history DOSE: CTDIvol: 2.90 mGy, DLP: Nine 6.38 mGy*cm COMPARISON: None . TECHNIQUE: Axial CT without IV contrast administration using low dose protocol. This study was performed with techniques to keep radiation doses as low as reasonably achievable, (ALARA). Individualized dose reduction techniques using automated exposure control or adjustment of mA and/or kV according to the patient's size were employed. FINDINGS: No acute lung disease is present . No pulmonary lesions are seen suspicious for neoplasm. No pleural or pericardial effusion is seen . No adenopathy or mass lesion is present . IMPRESSION: 1. No evidence of lung cancer LUNG RADS CATEGORY 1 RECOMMENDATION: 12 month LDCT follow up Reviewed, Interpreted and Dictated by Keon Wagner MD Transcribed by Charity Carlisle Authenticated and [facility]
== END 2024-05-24 23:59 | disposition home or self-care (01) ==
LOC: RAD 06:50
PROVIDERS: PCP Internal Medicine Adolescent Medicine; Visit Provider Internal Medicine Adolescent Medicine
DX: Z87.891 Personal history of nicotine dependence (principal)
CPT/HCPCS: 71271

== ENCOUNTER 2024-06-16 12:16 | Outpatient (CLI) | payer OTHER, SELFPAY ==
--- NOTE | 2024-06-16 12:20 | XR_ITS ---
FINAL REPORT CLINICAL HISTORY: PAIN..no trauma FINDINGS: Left ankle Three views were obtained. There is no fracture or dislocation. The joint spaces appear normal. No soft tissue abnormality is identified. Mild calcaneal spurring is identified. IMPRESSION: No acute process. Reviewed, Interpreted and Dictated by Keon Wagner MD Transcribed by Ana Pedroza Authenticated and . [facility]
--- NOTE | 2024-06-16 12:20 | XR_ITS ---
FINAL REPORT CLINICAL HISTORY: pain..no trauma FINDINGS: Left tibia fibula Two views were obtained. There is no fracture or dislocation. The joint spaces appear normal. No soft tissue abnormality is identified. IMPRESSION: No acute process. Reviewed, Interpreted and Dictated by Keon Wagner MD Transcribed by Ana Pedroza Authenticated and [facility]
== END 2024-06-16 23:59 | disposition home or self-care (01) ==
LOC: RAD 12:17
PROVIDERS: PCP Internal Medicine Adolescent Medicine; Visit Provider Internal Medicine Adolescent Medicine
DX: M25.572 Pain in left ankle and joints of left foot (principal); M79.662 Pain in left lower leg
CPT/HCPCS: 73590; 73610

== ENCOUNTER 2024-06-22 07:00 | Outpatient (RCR) | payer OTHER, SELFPAY ==
--- NOTE | 2024-06-05 07:48 | HMH.PTOPEV ---
PT Outpatient Evaluation Rehab PT Outpatient Evaluation Start: 06/05/24 07:02 Freq: Status: Active Protocol: Document 06/05/24 07:02 [id number] (Rec: 06/05/24 07:48 [id number] [id number]) E-signed By James Small, PT Outpatient Therapy Subjective History Subjective History Pt. is a 64 year old male who presents to [facility] Out[facility] Services in [place] for the outpatient initial evaluation this date( 06/05/24) w/ c/o acute and constant LLE knee P!, edema, and stiffness of insidious onset 2-3 weeks ago. Pt. reports he was stripping the siding of a house throughout the day and c/o increased edema grossly throughout the LLE knee that evening. Pt. denies injury and traumatic even as onset of symptoms, states, it's what I do everyday. 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 Pt. vocalizes edema improved some, however, c/o lingering P! in posterior knee and anterior and superior knee region that worsens w/ activities and at the end of the day. Pt. vocalizes a constant 2/10 ache that can worsen to a 8/10. Pt. reports stooping, squatting, or bending down increases c/o P!. Pt. reports resting provides some symptom relief. Pt. denies having injections for current complaint at this time . Pt. states having recent radiographs, however, is unable to recall results at this time. Pt. unable to recall RTMD at this time. Pt. denies any current restrictions. Current medication list includes Trazodone, Aspirin, Valsartan, and Bisoprolol. PMH includes Myocardial Infarction in 2022, Cardiac Stent Placement(at the time of the M.I.), Hyperlipidemia, and Hypertension. New diagnosis of cancer in past 12 No months? Chief Complaint Pain,Stiff,Clicks,Swelling, Gives out/Unstable,Weakness Symptom Type Ache,Throb,Dull,Stabbing, Shooting,Other Symptoms Relieved By Rest/Positioning,Ice, Prescription Meds Symptoms Aggravated By Standing,Bending/Stooping, Physical Activity,Twisting, Walking Prior Functional Limitations None Current Functional Limitations Housework,Standing,Squatting, Recreation Activity,Walking, Stairs,Bending/Stooping Symptom Description Constant and Continuous, Activity Dependent Level of pain today (0-10) 2 Pain scale - at its best (0-10) 2 Hip/Knee Eval Gait Observation General Gait Pattern Observation Antalgic Gait,Decrease Weight Bear (L),Decrease Stride Lngth (R) Assistive Device Assistive Devices None / NA Palpation Tenderness left Knee Palpation Finding Tenderness,Muscle Guarding Knee Palpation Overall Comment grade 4 +TTP distal quadriceps , quad. tendon, HS tendons, gastroc mm. belly MMT Hip Flexion Strength Grade 4 Good Hip Abduction Strength Grade 4 Good Hip Adduction Strength Grade 4- Good- Hip Extension Strength Grade 4 Good Gluteus Juan Strength Grade 4 Good Hip External Rotation Strength Grade 4- Good- Hip Internal Rotation Strength Grade 4- Good- Knee Extension Strength Grade 4- Good- Knee Flexion Strength Grade 4- Good- Knee Extensors Muscle Tone Description Severe Hypertonicity Knee Flexors Muscle Tone Description Severe Hypertonicity ROM Knee Extension Active Range of Motion ( +8 degrees) Knee Extension Passive Range of Motion ( +6 degrees) Knee Flexion Active Range of Motion ( 119 degrees) Knee Flexion Passive Range of Motion ( 124 degrees) Knee ROM Limitations Soft Tissue Tightness,Muscle Weakness,Pain Effusion joint effusion knee exam standard left Mid - Patellar Circumerential Measure ( 35 cm) 5cm Proximal Circumference Measure (cm) 39 5cm Distal Circumference Measure (cm) 33 Special Tests Prieto Test Positive Knee Apprehension Test Positive Left Knee Anterior Drawer Test Negative Left Knee Anterior Jaxon Test Negative Left Knee Valgus Stress Test Negative Left Knee Varus Stress Test Negative Left Knee Corey Test Negative Left Outpatient Therapy Assessment Impairments Problems/Impairmments Palpation Tenderness,Impaired Range of Motion,Impaired Strength,Impaired Endurance, Impaired Transfers,Impaired Gait Pattern,Impaired Walking, Impaired Standing,Impaired Household Care,Impaired Stair Climbing,Impaired Incline Stepping,Impaired Stepping on Uneven Surface,Impaired Squatting,Impaired Bending, Impaired Recreational Activities,Impaired Work Activities,Increased Edema, Subjective C/O Pain,Impaired Self Care/Self Management Prognosis Rehab Potential Good Comment w/ HEP compliancy Clinical Impression Consistent with Diagnosis Yes Consistent with LLE knee P! Additional details: initial assessment also consistent to s/s of LLE knee suprapatellar bursitis and quad. tendon tendonitis Short Term Goals Number of Weeks 2 Decreased Palpation Tenderness Yes: grade 1-2 +TTP Decrease Subjective C/O Pain Yes: worse:08/05 Patient to be Ind w/ HEP Yes Podopediatrician Goals Number of Weeks 4 Decreased Palpation Tenderness Yes: grade 1 +TTP Increase Range of Motion Yes: LLE knee A/PROM WFL grossly Increase Strength Yes: 4+ to 5/5 LLE hip/knee MMT scores grossly Improve Gait Pattern without Assistive Yes Device Increase Ability to Walk Yes Increase Ability to Stand Yes Improve Ability to Climb Stairs Yes Improve Incline Stepping Ability Yes Improve Ability to Step on Uneven Yes Surfaces Improve Ability to Squat Yes Improve Ability to Bend Yes Improve Tolerance to Work Activities Yes Improve LEFI Score Yes: MDC and MCID of 9 or greater Decrease Edema Yes: 1-2 cm. improvement LLE knee proximal edema Decrease Subjective C/O Pain Yes: worse:-05/08 Patient to be Ind w/ Advanced HEP Yes Outpatient Therapy Plan of Care Treatment Plan May Include Therapeutic Exercise Including Home Yes Exercise Program Manual Therapy Techniques Yes Neuromuscular Re-education Yes Therapeutic Activities to Return to Yes Previous Functional/Work Level ADL/Self Care Education Yes Dry Needling Yes Thermal Modalities Yes Electrical Stimulation Yes Ultrasound/Phonophoresis Yes Iontophoresis Yes Vasopneumatic Compression Pump Yes Massage Yes Eval/Re-Eval Yes Frequency Times per week 2 Duration Number of Weeks 4 Addendums This patient is a candidate for social No or vocational rehab? Patient/Guardian verbally acknowledges Yes understanding of treatment program and consents to further treatment? Patient/Guardian verbally acknowledges Yes understanding of diagnosis, prognosis and goals for treatment? Eval Complexity PT Charges 31507 - Low Complexity Shoulder/Elbow Eval Shoulder Objective Measurements Elbow Objective Measurements PHYSICIAN CERTIFICATION: I certify the specified therapy services for Heron Aly are required, authorized, and reviewed every 30 days.
== END 2024-06-22 23:59 | disposition home or self-care (01) ==
LOC: PT 07:00
PROVIDERS: PCP Internal Medicine Adolescent Medicine; Visit Provider Internal Medicine Adolescent Medicine
DX: M25.562 Pain in left knee (principal)
CPT/HCPCS: 97014; 97110; 97163; 97530; G0283

== ENCOUNTER 2024-06-29 15:54 | Outpatient (CLI) | payer OTHER, SELFPAY ==
--- NOTE | 2024-06-29 15:56 | MR_ITS ---
FINAL REPORT TECHNIQUE: Multiplanar MR without contrast CLINICAL HISTORY: PAIN IN LEFT KNEE PAIN ABOVE PATELLA AND SWELLING X 1 MONTH FINDINGS: Articular cartilage: Mild diffuse thinning. No focal defect identified. Marrow signal: Unremarkable Joint fluid: Small to moderate joint effusion. Calcified loose body within a small Solis's cyst measuring up to 12 mm. Menisci: Complex tear posterior horn medial meniscus. Lateral meniscus intact. Ligaments: Collateral, cruciate and patellofemoral ligaments intact Tendons: Quadriceps and patellar tendon normal IMPRESSION: Complex tear posterior horn medial meniscus. Loose body within a small Solis's cyst. Reviewed, Interpreted and Dictated by Keon Wagner MD Transcribed by Ana Pedroza Authenticated and [facility]
== END 2024-06-29 23:59 | disposition home or self-care (01) ==
LOC: RAD 15:55
PROVIDERS: PCP Internal Medicine Adolescent Medicine; Visit Provider Internal Medicine Adolescent Medicine
DX: M25.562 Pain in left knee (principal)
CPT/HCPCS: 73721

== ENCOUNTER 2024-11-01 11:14 | Outpatient (CLI) | payer OTHER, SELFPAY ==
--- OUTSIDE RECORDS SUMMARY | 2024-11-01 11:16 | XMS_ITS | Encounter Summary ---
Author Organization Healthcare Address [address] [place] [address] Care Team Providers Care Hot Dog Vendor Name Role Phone Den Caceres MD Primary Care Provider [phone] Encounter Details Date Type Department Care Team (Late st Contact Info) Description 06/29/2024 Orders Only External Location [address] [place] [address] Den Caceres MD [address] [place] [address] Social History Tobacco Use Types Packs/Day Years Used Date Smoking Tobacco: Never Assessed Sex and Gender Information Value Date Recorded Sex Assigned at Not on file Legal Sex Male 10:46 AM EST Gender Identity Not on file Sexual Orientation Not on file documented as of this encounter Plan of Treatment Not on file documented as of this encounter Procedures Procedure Name Priority Date/Time Associated Diagnosis Comments MR MSK OUTSIDE IMAGES 06/29/2024 3:53 PM EDT documented in this encounter Results * MR MSK OUTSIDE IMAGES (06/29/2024 3:53 PM EDT) Anatomical Region Laterality Modality Magnetic Resonan ce 06/29/2024 3:53 PM EDT Den Caceres MD IMG MRI PROCEDURES Final Res ult documented in this encounter Visit Diagnoses Not on filedocumented in this encounter Care Teams Hot Dog Vendor Relationship Specialty Start Date End Date Den Caceres MD [address] [place] [address] PCP - General Internal Medicine 07/10/24 documented as of this encounter
--- OUTSIDE RECORDS SUMMARY | 2024-11-01 11:16 | XMS_ITS | Encounter Summary ---
Author Organization Healthcare Address [address] [place] [address] Care Team Providers Care State Tested Nursing Assistant Name Role Phone Den Caceres MD Primary Care Provider [phone] Encounter Details Date Type Department Care Team (Late st Contact Info) Description 08/18/2023 [facility] [address] [place] [address] Den Caceres MD [address] [address] Social History Tobacco Use Types Packs/Day Years Used Date Smoking Tobacco: Never Assessed Sex and Gender Information Value Date Recorded Sex Assigned at Not on file Legal Sex Male 10:46 AM EST Gender Identity Not on file Sexual Orientation Not on file documented as of this encounter Plan of Treatment Not on file documented as of this encounter Visit Diagnoses Not on filedocumented in this encounter Care Teams State Tested Nursing Assistant Relationship Specialty Start Date End Date Den Caceres MD [address] [facility] [address] [place] [address] PCP - General Internal Medicine 07/10/24 documented as of this encounter
--- OUTSIDE RECORDS SUMMARY | 2024-11-01 11:16 | XMS_ITS | Clinical Summary ---
Author Organization Healthcare Address [address] [place] [address] Care Team Providers Care Game Tester Name Role Phone Den Caceres MD Primary Care Provider [phone] Allergies No known active allergies Medications aspirin 81 MG EC tablet TAKE 1 TABLET BY MOUTH DAILY for 30 Active bisoprolol (Zebeta) 10 MG tablet 1 (one) time each day at the same time. Active Evolocumab (Repatha) 140 MG/ML solution prefilled syringe Active valsartan (Diovan) 40 MG tablet 1 (one) time each day at the same time. Active methylPREDNISol one (Medrol Dospak) 4 MG tablets Follow schedule on package instructions 21 tablet 5 Active Additional Information Patient not taking.Reported on 08/09/2024 diclofenac (Voltaren) 1 % topical gelIndications: Chronic pain of left knee Place on the skin 2 times a day. Apply as directed to knee 350 g 5 Active Active Problems No known active problems Encounters Date Type Department Care Team Description 08/09/2024 10:30 AM EDT Office Visit [facility] [address] , [address] [place] [address] Daryl Hartman MD Chronic pain of left knee (Primary Dx) 08/09/2024 Travel from Last 3 Months Social History Tobacco Use Types Packs/Day Years Used Date Smoking Tobacco: Never Smokeless Tobacco: Never Tobacco Cessation:Counseling Given: Not Answered Sex and Gender Information Value Date Recorded Sex Assigned at Not on file Legal Sex Male 10:46 AM EST Gender Identity Not on file Sexual Orientation Not on file Last Filed Vital Signs Vital Sign Reading Time Taken Comments Blood Pressure 152/81 08/09/2024 10:19 AM EDT Pulse 80 09/25/2022 10:54 AM EDT Temperature - - Respiratory Rate - - Oxygen Saturation - - Inhaled Oxygen Concentration - - Weight 90.3 kg (199 lb) 08/09/2024 10:19 AM EDT Height 177.8 cm (5' 10 ) 08/09/2024 10:19 AM EDT Body Mass Index 28.55 08/09/2024 10:19 AM EDT Plan of Treatment Health Maintenance Due Date Last Done Comments [facility]-Depression Screening 1961 [facility]-HIV Screening 1961 [facility]-Hepatitis C Screening 1961 [facility]-/Child/Adol SDOH Screenings 1961 [facility]- SDOH Screenings 1979 [facility]-Adult SDOH Screenings 1979 [facility]-DTaP,Tdap,and Td Vaccine s (1 - Tdap) 1980 CT Colonography 2006 Colonoscopy 2006 FIT-DNA 2006 FIT 2006 FOBT 2006 Sigmoidoscopy 2006 [facility]-Colorectal Cancer Screening 2006 [facility]-Pneumococcal Vaccine: 50 + Years (1 of 1 - PCV) 2011 [facility]-Zoster Vaccines (1 of 2) 2011 [id number] Vaccine (1 - 2023- season) 2023 [facility]-Influenza Vaccine (#1) 2024 [facility]-RSV Vaccine: 60+ Years o r (1 - 1-dose 75+ series) 2036 [facility]-Obesity Intervention Completed 025, 07/17/2024 HPV Vaccines Aged Out No longer eligi ble based on patient's age to complete this topic [facility]-HIB Vaccines Aged Out No longer e ligible based on patient's age to complete this topic [facility]-Hepatitis A Vaccines Aged Out No longer eligible based on patient's age to complete this topic [facility]-IPV Vaccines Aged Out No longer e ligible based on patient's age to complete this topic [facility]-Rotavirus Vaccines Aged Out No lo nger eligible based on patient's age to complete this topic Insurance Joce0 Jason Rosas [place] [id number] [employer] [facility] MEDICAID Care Teams Game Tester Relationship Specialty Start Date End Date Den Caceres MD [address] [place] [address] PCP - General Internal Medicine 07/10/24
[2024-11-01 12:34] LABS: Albumin Level 4.6 g/dl (3.5-5.0)
[2024-11-01 12:37] LABS: Alanine Aminotransferase 38 U/L (12-78); Alkaline Phosphatase 77 U/L (38-126); Aspartate Amino Transferase 33 U/L (17-59); Bilirubin,Direct 0.1 mg/dl (0.0-0.4); Bilirubin,Indirect 0.4 mg/dL (0.0-0.9); Bilirubin,Total 0.5 mg/dl (0.2-1.3); Bilirubin,Unconjugated 0.4 mg/dL (0.0-1.1); Cholesterol 93 mg/dl (140-200); HDL Cholesterol 49 mg/dl (40-60); Total Protein,Serum 7.1 g/dl (6.3-8.2); Triglycerides 103 mg/dl (30-150)
== END 2024-11-01 23:59 | disposition home or self-care (01) ==
LOC: LAB 11:15
PROVIDERS: PCP Internal Medicine Adolescent Medicine; Visit Provider Physician Assistant
DX: I25.10 Atherosclerotic heart disease of native coronary artery without angina pectoris (principal); I10 Essential (primary) hypertension
CPT/HCPCS: 36415; 80061; 80076

== ENCOUNTER 2025-03-15 09:25 | Outpatient (CLI) | payer OTHER, SELFPAY ==
--- OUTSIDE RECORDS SUMMARY | 2025-03-15 09:36 | XMS_ITS | Encounter Summary ---
Author Organization Healthcare Address [address] [place] [address] Care Team Providers Care Bankruptcy Paralegal Name Role Phone Den Caceres MD Primary Care Provider [phone] Encounter Details Date Type Department Care Team (Late st Contact Info) Description 06/29/2024 Orders Only External Location [address] [place] [address] Den Caceres MD [address] [...] on filedocumented in this encounter Care Teams Bankruptcy Paralegal Relationship Specialty Start Date End Date Den Caceres MD [address] [place] [address] PCP - General Internal Medicine 07/10/24 documented as of this encounter
--- OUTSIDE RECORDS SUMMARY | 2025-03-15 09:36 | XMS_ITS | Clinical Summary ---
Author Organization [facility] Address [address] [place] [address] Care Team Providers Care Implementation Specialist Name Role Phone Den Caceres MD Primary Care Provider [phone] Allergies No known active allergies Medications aspirin [...] Active Active Problems No known active problems Social History Tobacco Use Types Packs/Day Years [...] [facility]-HIV Screening 1961 [facility]-Hepatitis C Screening 1961 [facility]-Infant/Child/Adol SDOH Screenings 1961 [facility]- SDOH Screenings 1979 [facility]-Adult SDOH Screenings 1979 [facility]-DTaP,Tdap,and Td Vaccine s (1 - Tdap) 1980 CT Colonography 2006 Colonoscopy 2006 FIT-DNA 2006 FIT 2006 FOBT 2006 Sigmoidoscopy 2006 [facility]-Colorectal Cancer Screening 2006 [facility]-Pneumococcal Vaccine: 50 + Years (1 of 1 - PCV) 2011 [facility]-Zoster Vaccines (1 of 2) 2011 [id number] Vaccine (1 - 2024- season) 2024 [facility]-Influenza Vaccine (#1) 2024 [facility]-RSV Vaccine: 60+ Years o r (1 - 1-dose 75+ series) 2036 [facility]-Obesity Intervention Completed 025, 07/17/2024 HPV Vaccines (No Doses Required) Completed [facility]-HIB Vaccines Aged Out No longer e [...] patient's age to complete this topic Insurance [facility] [facility] MEDICAID Care Teams Implementation Specialist Relationship Specialty Start Date End Date Den Caceres MD [address] [place] [address] PCP - General Internal Medicine 07/10/24
--- OUTSIDE RECORDS SUMMARY | 2025-03-15 09:36 | XMS_ITS | Encounter Summary ---
Author Organization Healthcare Address [address] [place] [address] Care Team Providers Care Forensic Manager Name Role Phone Den Caceres MD Primary Care Provider [phone] Encounter Details Date Type Department Care Team (Late st Contact Info) Description 08/18/2023 [facility] [place] [place] [facility] [address] [place] [address] Den Caceres MD [address] [address] Social History Tobacco Use Types Packs/Day Years [...] on filedocumented in this encounter Care Teams Forensic Manager Relationship Specialty Start Date End Date Den Caceres MD [address] [facility] [address] [place] [address] PCP - General Internal Medicine 07/10/24 documented as of this encounter
[2025-03-15 10:11] LABS: Hematocrit 43.3 % (42.0-52.0); Hemoglobin 14.8 g/dL (14.1-18.0); Immature Granulocytes % 0.1 %; Mean Corpuscular HGB Conc 34.2 g/dL (31.8-35.4); Mean Corpuscular Hemoglobin 32.8 pg (27.0-31.2); Mean Corpuscular Volume 96.0 fl (80-94); Nucleated Red Blood Cells % 0 %; Platelet Count 218 K/mm3 (142-424); Red Blood Count 4.51 M/mm3 (4.60-6.20); Red Cell Distribution Width-SD 45.1 fL; White Blood Count 6.9 K/mm3 (4.8-10.8)
[2025-03-15 10:57] LABS: Alanine Aminotransferase 46 U/L (12-78); Albumin Level 4.6 g/dl (3.5-5.0); Alkaline Phosphatase 70 U/L (38-126); Anion Gap 13.2 mEq/L (5-15); Aspartate Amino Transferase 32 U/L (17-59); Bilirubin,Direct 0.2 mg/dl (0.0-0.4); Bilirubin,Indirect 0.3 mg/dL (0.0-0.9); Bilirubin,Total 0.5 mg/dl (0.2-1.3); Bilirubin,Unconjugated 0.3 mg/dL (0.0-1.1); Blood Urea Nitrogen 19 mg/dl (9-20); Calcium 9.7 mg/dl (8.4-10.2); Carbon Dioxide 26 mmol/L (22.0-30.0); Chloride 105 mmol/L (98-107); Cholesterol 97 mg/dl (140-200); Creatinine,Serum 1.10 mg/dl (0.66-1.25); Estimated Glomerular Filt Rate 68 ml/min (>60); GFR (African American) 82 ML/MIN (>60); Glucose 98 mg/dl (74-100); HDL Cholesterol 52 mg/dl (40-60); Magnesium 2.1 mg/dl (1.6-2.3); Potassium 4.2 mmoL/L (3.5-5.1); Sodium 140 mmol/L (136-145); Total Protein,Serum 7.3 g/dl (6.3-8.2); Triglycerides 164 mg/dl (30-150)
[2025-03-15 11:11] LABS: Free T4 (Free Thyroxine) 0.96 ng/dl (0.78-2.19)
[2025-03-15 11:26] LABS: Thyroid Stimulating Hormone 1.72 uIU/mL (0.465-4.68)
== END 2025-03-15 23:59 | disposition home or self-care (01) ==
PROVIDERS: PCP Internal Medicine Adolescent Medicine; Visit Provider Physician Assistant
DX: E78.2 Mixed hyperlipidemia (principal); I10 Essential (primary) hypertension; I25.10 Atherosclerotic heart disease of native coronary artery without angina pectoris
CPT/HCPCS: 36415; 80048; 80061; 80076; 83735; 84439; 84443; 85025